=== PATIENT | female | born 1960 | race Caucasian/White ===

== ENCOUNTER → 2019-03-11 | Outpatient (CLI) | payer OTHER | LOC: WOUNDCARE 09:17 | PROVIDERS: ATTEND Nurse Practitioner | DX: E11.628 Type 2 diabetes mellitus with other skin complications (principal); L98.492 Non-pressure chronic ulcer of skin of other sites with fat layer exposed; E66.01 Morbid (severe) obesity due to excess calories | CPT/HCPCS: 11042; 11045 ==

== ENCOUNTER → 2019-03-18 | Outpatient (CLI) | payer OTHER | LOC: WOUNDCARE 08:55 | PROVIDERS: ATTEND Nurse Practitioner | DX: E11.628 Type 2 diabetes mellitus with other skin complications (principal); L98.492 Non-pressure chronic ulcer of skin of other sites with fat layer exposed; E66.01 Morbid (severe) obesity due to excess calories | CPT/HCPCS: 11042; 11045 ==

== ENCOUNTER → 2020-10-28 | Outpatient (CLI) | payer MEDICARE, MEDICAID | LOC: WOUNDCARE 15:24 | PROVIDERS: ATTEND Surgery | DX: L98.491 Non-pressure chronic ulcer of skin of other sites limited to breakdown of skin (principal); L22 Diaper dermatitis; L89.150 Pressure ulcer of sacral region, unstageable; I96 Gangrene, not elsewhere classified ==

== ENCOUNTER → 2020-11-11 | Outpatient (CLI) | payer MEDICARE, MEDICAID ==
[~2020-11-11] MED LIST: ALBU90AE2 IH; ASCO-262 PO; DAPA10TA PO; EXEN2PEN SQ; FURO40TA4 PO; GABA300C PO; GABA300S2 PO; INSU100V6 SQ; IPRA3AMP31 IH; LAMO100T69 PO; LORA-405 PO; LORA-405 SL; MELO15TA14 PO; OLAN5TAB25 PO; ONDA-105 PO; PANT40TA52 PO; POTA99TA21 PO; QUET25TA73 PO; QUET50TA55 PO; RIZA10TA23 PO; RT-ALBUINH IH; SUCR1TAB36 PO; TIOT18CA2 IH
== END ==
LOC: WOUNDCARE 14:43
PROVIDERS: ATTEND Surgery
DX: I96 Gangrene, not elsewhere classified (principal); L89.150 Pressure ulcer of sacral region, unstageable; L98.492 Non-pressure chronic ulcer of skin of other sites with fat layer exposed; L22 Diaper dermatitis

== ENCOUNTER 2020-11-15 09:24 | Inpatient (IN) | payer MEDICARE, MEDICAID ==
[~2020-11-15] VITALS: Ht 165.1 cm; Wt 147.2 kg
[2020-11-15] MEDS ORDERED: ONDANSETRON 4 MG/2 ML (SDV) Z0FRAN ONE (09:27)
[2020-11-15] MEDS ORDERED: LACTATED RINGERS 1,000 ML IV ONE ×4 (09:27→11:00)
[2020-11-15] MEDS ORDERED: VANCOMYCIN INJECTION 2,000 MG in NS IV 500 ML 500 ML IV ONE (09:32)
--- NOTE | 2020-11-15 09:37 | ED General ---
General Stated Complaint: AMS Source of Information: Patient Exam Limitations: No Limitations History of Present Illness Date Seen by Provider: Nov 15, 2020 Time Seen by Provider: 09:29 Initial Comments Patient presents ER by EMS from [facility] with chief complaint of lethargic and unresponsive. She stirs and answers questions for EMS. Blood damian gar 200. She recently got over COVID-19 a month ago. They had her on nasal cannula at 12 L/min. EMS switched her to a high flow nasal cannula 10 L/min keeping her about 94%. She was 90% on 6 L and typically wears 3 L at baseline. She says she is nauseated and thirsty. She is oriented to self but not place or time. She has a Reilly catheter in with dark urine which was placed by Dr. CABRALES's orders secondary to retention. No history of fever or cough. She had a negative Covid screen this morning from the custodial. Allergies and Home Medications Allergies Coded Allergies: ciprofloxacin (Verified Allergy, Unknown, 11/15/20) vancomycin (Verified Adverse Reaction, Unknown, 11/15/20) RED MAN SYNDROME Patient Home Medication List Home Medication List Reviewed: Yes Review of Systems Review of Systems Constitutional: No chills, No fever, No malaise; weakness EENTM: No ear discharge, No ear pain Respiratory: No cough; short of breath; No wheezing Cardiovascular: see HPI; No chest pain, No edema; Hx of Intervention; No palpitations, No syncope Gastrointestinal: No abdominal pain, No constipation, No diarrhea, No nausea Genitourinary: No discharge, No dysuria Musculoskeletal: back pain (Chronic); No joint pain All Other Systems Reviewed Negative Unless Noted: Yes Past Evatwfu-Jqawlq-Zajomd Hx Patient Social History Alcohol Use: Denies Use Smoking Status: Never a Smoker Physical Exam-Suspected Sepsis Physical Exam Vital Signs Vital Signs - First Documented Capillary Refill : Height, Weight, BMI Height: '" Weight: lbs. oz. kg; BMI Method: General Appearance: Anxious, Moderate Distress, Obese Eyes: Bilateral Eye Normal Inspection, Bilateral Eye PERRL, Bilateral Eye EOMI HEENT: PERRL/EOMI, TMs Normal, Pharynx Normal (Dry oral mucosa); No Moist Mucous Membranes Neck: Full Range of Motion, Normal Inspection, Supple Respiratory: Lungs Clear, Normal Breath Sounds, No Accessory Muscle Use, Respiratory Distress (mod) Cardiovascular: Regular Rate, Rhythm, Normal Peripheral Pulses, Tachycardia Gastrointestinal: Normal Bowel Sounds, Non Tender, Soft Extremity: Normal Capillary Refill, Normal Inspection, No Pedal Edema Neurologic/Psychiatric: Alert, Oriented x3 Skin: normal color, warm/dry Focused Exam Lactate Level 11/15/20 09:35: Lactic Acid Level 1.60 Lactic Acid Level Laboratory Tests Test 11/15/20 09:35 Lactic Acid Level 1.60 MMOL/L (0.50-2.00) Progress/Results/Core Measures Suspected Sepsis SIRS Temperature: Pulse: Respiratory Rate: Laboratory Tests 11/15/20 09:35: White Blood Count 21.4H Blood Pressure / Mean: 11/15/20 09:35: Lactic Acid Level 1.60 Laboratory Tests 11/15/20 09:35: Creatinine 0.91, INR Comment 1.0, Platelet Count 129L, Total Bilirubin 0.6 Results/Orders Lab Results Laboratory Tests Test 11/15/20 09:30 11/15/20 09:35 11/15/20 10:34 11/15/20 11:04 Range/Units White Blood Count 21.4 H 4.3-11.0 10^3/uL Red Blood Count 4.38 3.80-5.11 10^6/uL Hemoglobin 11.4 L 11.5-16.0 g/dL Hematocrit 38 35-52 % Mean Corpuscular Volume 88 80-99 fL Mean Corpuscular Hemoglobin 26 25-34 pg Mean Corpuscular Hemoglobin Concent 30 L 32-36 g/dL Red Cell Distribution Width 18.5 H 10.0-14.5 % Platelet Count 129 L 130-400 10^3/uL Mean Platelet Volume 10.6 9.0-12.2 fL Immature Granulocyte % (Auto) 1 % Neutrophils (%) (Auto) 83 H 42-75 % Lymphocytes (%) (Auto) 11 L 12-44 % Monocytes (%) (Auto) 5 0-12 % Eosinophils (%) (Auto) 0 0-10 % Basophils (%) (Auto) 0 0-10 % Neutrophils # (Auto) 17.8 H 1.8-7.8 10^3/uL Lymphocytes # (Auto) 2.4 1.0-4.0 10^3/uL Monocytes # (Auto) 1.0 0.0-1.0 10^3/uL Eosinophils # (Auto) 0.0 0.0-0.3 10^3/uL Basophils # (Auto) 0.0 0.0-0.1 10^3/uL Immature Granulocyte # (Auto) 0.2 H 0.0-0.1 10^3/uL Neutrophils % (Manual) 70 % Lymphocytes % (Manual) 11 % Monocytes % (Manual) 2 % Band Neutrophils 17 % Hypochromasia MODERATE Anisocytosis SLIGHT Stomatocytes SLIGHT Prothrombin Time 13.7 12.2-14.7 SEC INR Comment 1.0 0.8-1.4 Activated Partial Thromboplast Time 30 24-35 SEC D-Dimer 3.78 H 0.00-0.49 UG/ML Sodium Level 139 135-145 MMOL/L Potassium Level 3.9 3.6-5.0 MMOL/L Chloride Level 98 98-107 MMOL/L Carbon Dioxide Level 32 21-32 MMOL/L Anion Gap 9 5-14 MMOL/L Blood Urea Nitrogen 16 7-18 MG/DL Creatinine 0.91 0.60-1.30 MG/DL Estimat Glomerular Filtration Rate > 60 BUN/Creatinine Ratio 18 Glucose Level 219 H 70-105 MG/DL Lactic Acid Level 1.60 0.50-2.00 MMOL/L Calcium Level 8.3 L 8.5-10.1 MG/DL Corrected Calcium 9.3 8.5-10.1 MG/DL Total Bilirubin 0.6 0.1-1.0 MG/DL Aspartate Amino Transf (AST/SGOT) 47 H 5-34 U/L Alanine Aminotransferase (ALT/SGPT) 34 0-55 U/L Alkaline Phosphatase 109 40-136 U/L B-Type Natriuretic Peptide 57.9 <100.0 PG/ML Total Protein 5.8 L 6.4-8.2 GM/DL Albumin 2.8 L 3.2-4.5 GM/DL Urine Color YELLOW Urine Clarity CLEAR Urine pH 5.5 5-9 Urine Specific [place] 1.020 1.016-1.022 Urine Protein 1+ H NEGATIVE Urine Glucose (UA) 3+ H NEGATIVE Urine Ketones TRACE H NEGATIVE Urine Nitrite NEGATIVE NEGATIVE Urine Bilirubin NEGATIVE NEGATIVE Urine Urobilinogen 0.2 < = 1.0 MG/DL Urine Leukocyte Esterase TRACE H NEGATIVE Urine RBC (Auto) 3+ H NEGATIVE Urine RBC TNTC H /HPF Urine WBC 5-10 H /HPF Urine Squamous Epithelial Cells 0-2 /HPF Urine Crystals PRESENT H /LPF Urine Amorphous Sediment MOD ISIDRO URATES H /LPF Urine Bacteria LARGE H /HPF Urine Casts NONE /LPF Urine Mucus NEGATIVE /LPF Urine Yeast MODERATE H /HPF Urine Culture Indicated CULTURE PENDING Blood Gas Puncture Site NA Blood Gas Patient Temperature 36.8 Arterial Blood pH 7.34 *L 7.37-7.43 Arterial Blood Partial Pressure CO2 57 H 35-45 MMHG Arterial Blood Partial Pressure O2 86 79-93 MMHG Arterial Blood HCO3 30 H 23-27 MMOL/L Arterial Blood Total CO2 31.3 H 21.0-31.0 MMOL/L Arterial Blood Oxygen Saturation 95 94-100 % Arterial Blood Base Excess 4.1 H -2.5-2.5 MMOL/L Germán Test YES-POS Blood Gas Ventilator Setting NO Blood Gas Inspired Oxygen 15 L My Orders Orders - JW RITTER Lactated Ringers (Lr 1000 Ml Iv Solution (11/15/20 09:27) Ondansetron Injection (Zofran Injectio (11/15/20 09:27) Cbc With Automated Diff (11/15/20:32) Comprehensive Metabolic Panel (11/15/20:32) Blood Culture (11/15/20:32) Sputum Culture (11/15/20:32) Urinalysis (11/15/20:32) Urine Culture (11/15/20:32) Protime With Inr (11/15/20:32) Partial Thromboplastin Time (11/15/20:32) Chest 1 View, Ap/Pa Only (11/15/20:32) Ed Iv/Invasive Line Start (11/15/20 09:32) Ed Iv/Invasive Line Start (11/15/20 09:32) Vital Signs Adult Sepsis Patie Q15M (11/15/20 09:32) Ondansetron Injection (Zofran Injectio (11/15/20 09:45) O2 (11/15/20 09:32) Remove Rings In Anticipation O (11/15/20 09:32) Lactic Acid Analyzer (11/15/20 09:32) Lactated Ringers (Lr 1000 Ml Iv Solution (11/15/20 09:45) Cefepime Injection (Maxipime Injection) (11/15/20 09:45) Vancomycin Injection (Vancomycin Injecti (11/15/20 09:32) Ed Iv/Invasive Line Start (11/15/20 09:32) Lactated Ringers (Lr 1000 Ml Iv Solution (11/15/20 09:45) BNP (11/15/20 09:37) Manual Differential (11/15/20 09:35) Haloperidol Tablet (Haldol Tablet) (11/15/20 10:30) Ed Iv/Invasive Line Start (11/15/20 10:47) Lactated Ringers (Lr 1000 Ml Iv Solution (11/15/20 11:00) Arterial Blood Gas (11/15/20 10:58) Methylprednisolone Sod Succ (Solu-Medrol (11/15/20 11:30) Fibrin Degradation Products (11/15/20 11:37) Bipap (Bilevel) Set Up (11/15/20 12:19) Medications Given in ED Current Medications Medications Dose Ordered Sig/Jeremi Route Start Time Stop Time Status Last Admin Dose Admin Cefepime HCl 1000 mg/Sterile Water 10 ml @ 200 mls/hr ONCE ONCE IV 11/15/20 09:45 11/15/20 09:47 DC 11/15/20 09:59 200 MLS/HR Lactated Ringer's 1,000 ml @ 0 mls/hr Q0M ONCE IV 11/15/20 09:45 11/15/20 09:46 DC 11/15/20 09:38 1,000 MLS/HR Lactated Ringer's 1,000 ml @ 0 mls/hr Q0M ONCE IV 11/15/20 09:45 11/15/20 09:46 DC 11/15/20 09:58 0 MLS/HR Lactated Ringer's 1,000 ml @ 0 mls/hr Q0M ONCE IV 11/15/20 11:00 11/15/20 11:01 DC 11/15/20 11:03 0 MLS/HR Methylprednisolone Sodium Succinate 125 mg ONCE ONCE IVP 11/15/20 11:30 11/15/20 11:31 DC 11/15/20 12:04 125 MG Ondansetron HCl 8 mg PRN PRN IV 11/15/20 09:45 11/15/20 09:45 DC 2/8/21 09:39 8 MG Vancomycin HCl 2000 mg/Sodium Chloride 500 ml @ 260 mls/hr 0932 ONCE IV 11/15/20 09:32 11/15/20 11:27 DC 11/15/20 09:59 260 MLS/HR Vital Signs/I&O 11/15/20 11/15/20 11/15/20 11/15/20 09:24 09:24 11:27 12:40 Temp 36.8 Pulse 124 118 105 Resp 22 20 20 B/P (MAP) 143/71 (95) 108/70 Pulse Ox 93 96 94 O2 Delivery Nasal Cannula Nasal Cannula NIV Bilevel O2 Flow Rate 10.00 10.00 45.00 Capillary Refill : Progress Note #1: Time: 10:27 Progress Note Patient has not been lethargic since she arrived. She is vocal about her desire for p.o. fluids. We have given her 2 L which would be approximately 20 mL/kg based on ideal body weight. Broad-spectrum antibiotics. Progress Note #2: Time: 10:58 Progress Note Pneumonia versus UTI. Broad-spectrum antibiotics. The patient's blood pressure has continued to pain so we have ordered 1/3 L of fluids and will put in a central line and initiate Levophed as necessary. Patient's oxygen saturations have been poor. ABG will be ordered to ascertain how much of this is related to peripheral vasoconstriction related to her hypotension. Her hypotension started about same time we initiated the vancomycin and now she is appearing little red on examination. Suspect the vancomycin may be causing her hypotension. Were going to hold that and see how her blood pressure responds. Progress Note #3: Time: 11:46 Progress Note After stopping the vancomycin the patient's redness went away and her blood pressure significantly improved it is now 123/93. I will let her complete her IV fluids 3 L total. Went and gave her some steroids for her COPD exacerbation. Plan to start BiPAP at 15/5 45% FiO2 and that is maintaining her oxygen sats around 96% which is adequate. We cleaned and put a dressing on her sacral decub which is chronic. We put her into a hospital bed for offloading and will consult with wound care upstairs. Diagnostic Imaging Diagonstic Imaging: Xray Plain Films/CT/US/NM/MRI: chest Comments NAME: VIKI CYR [facility] REC#: [id number] PT STATUS: REG ER : 1960 PHYSICIAN: JW RITTER MD ADMIT DATE: 11/15/20/ER Draft Date of Exam:11/15/20 CHEST 1 VIEW, AP/PA ONLY HISTORY: Sepsis. COMPARISON: 01/14/2019 TECHNIQUE: Frontal view of the chest. FINDINGS: The tip of the left Port-A-Cath appears unchanged, projecting over the left innominate vein. There are mild airspace opacities in the lung bases and peripheral lungs. Lung volumes are low. No pleural effusion or pneumothorax is seen. The cardiac silhouette is stable in size. IMPRESSION: 1. Basilar and peripheral airspace opacities bilaterally, may be due to infection. Dictated on workstation # [id number] Dict: 11/15/20 1025 Trans: 11/15/20 1029 [id number] Interpreted by: TYLER PATEL MD Electronically signed by: Reviewed: Reviewed by Me Departure Communication (Admissions) Time/Spoke to Admitting Phy: 11:30 Discussed the case with Dr. Sheridan and she agrees to accept the patient to the ICU on BiPAP and cefepime. She will hold off on vancomycin at this time. Impression Primary Impression: Pneumonia Qualified Codes: J18.9 - Pneumonia, unspecified organism Additional Impressions: Catheter-associated urinary tract infection Qualified Codes: T83.511A - Infection and inflammatory reaction due to indwelling urethral catheter, initial encounter; N39.0 - Urinary tract infection, site not specified Acute respiratory failure with hypoxia and hypercapnia Sepsis Qualified Codes: A41.9 - Sepsis, unspecified organism; R65.20 - Severe sepsis without septic shock; J96.01 - Acute respiratory failure with hypoxia CHELO (red man syndrome) Disposition: ADMITTED INPATIENT Condition: Stable Admissions Decision to Admit Reason: Admit from ER (General) Decision to Admit/Date: Nov 15, 2020 Time/Decision to Admit Time: 10:00 Departure-Patient Inst. Referrals: KIRSTIN HERNANDEZ MD (PCP/Family) Primary Care Physician JW RITTER Nov 15, 2020 09:37
[2020-11-15] MEDS ORDERED: CEFEPIME INJECTION 1,000 MG in WATER (STERILE) FOR INJECTION 10 ML IV ONE (09:45)
[2020-11-15] MEDS ORDERED: ONDANSETRON 4 MG/2 ML (SDV) Z0FRAN IV PRN (09:45)
[2020-11-15 09:50] LABS: BASOPHILS % (AUTO) 0 % (0-10); EOSINOPHILS % (AUTO) 0 % (0-10); HEMATOCRIT 38 % (35-52); HEMOGLOBIN 11.4 g/dL (11.5-16.0); LYMPHOCYTES # (AUTO) 2.4 10^3/uL (1.0-4.0); LYMPHOCYTES % (AUTO) 11 % (12-44); MEAN CORPUSCULAR HEMOGLOBIN 26 pg (25-34); MEAN CORPUSCULAR HGB CONC 30 g/dL (32-36); MEAN CORPUSCULAR VOLUME 88 fL (80-99); MEAN PLATELET VOLUME 10.6 fL (9.0-12.2); MONOCYTES % (AUTO) 5 % (0-12); NEUTROPHILS # (AUTO) 17.8 10^3/uL (1.8-7.8); NEUTROPHILS % (AUTO) 83 % (42-75); PLATELET COUNT 129 10^3/uL (130-400); WHITE BLOOD COUNT 21.4 10^3/uL (4.3-11.0)
[2020-11-15 10:00] LABS: ALBUMIN 2.8 GM/DL (3.2-4.5)
[2020-11-15 10:01] LABS: CHLORIDE 98 MMOL/L (98-107); POTASSIUM 3.9 MMOL/L (3.6-5.0); SODIUM 139 MMOL/L (135-145)
[2020-11-15 10:02] LABS: CALCIUM 8.3 MG/DL (8.5-10.1); PROTHROMBIN TIME PATIENT 13.7 SEC (12.2-14.7)
[2020-11-15 10:03] LABS: ANISOCYTOSIS SLIGHT; BAND NEUTROPHILS 17 %; GLUCOSE 219 MG/DL (70-105); HYPOCHROMASIA MODERATE; LYMPHOCYTES % (MANUAL) 11 %; MONOCYTES % (MANUAL) 2 %; NEUTROPHILS % (MANUAL) 70 %; STOMATOCYTES SLIGHT; TOTAL PROTEIN 5.8 GM/DL (6.4-8.2)
[2020-11-15 10:04] LABS: CARBON DIOXIDE 32 MMOL/L (21-32)
[2020-11-15 10:05] LABS: BILIRUBIN,TOTAL 0.6 MG/DL (0.1-1.0)
[2020-11-15 10:06] LABS: ALKALINE PHOSPHATASE 109 U/L (40-136)
[2020-11-15 10:07] LABS: CREATININE SERUM 0.91 MG/DL (0.60-1.30); GFR ESTIMATED > 60
[2020-11-15 10:08] LABS: BUN/CREATININE RATIO 18
[2020-11-15 10:09] LABS: ALANINE AMINOTRANSFERASE 34 U/L (0-55)
--- NOTE | 2020-11-15 10:29 | Diagnostic Imaging Report ---
HISTORY: Sepsis. COMPARISON: 01/14/2019 TECHNIQUE: Frontal view of the chest. FINDINGS: The tip of the left Port-A-Cath appears unchanged, projecting over the left innominate vein. There are mild airspace opacities in the lung bases and peripheral lungs. Lung volumes are low. No pleural effusion or pneumothorax is seen. The cardiac silhouette is stable in size. IMPRESSION: 1. Basilar and peripheral airspace opacities bilaterally, may be due to infection. Dictated by: Dictated on workstation # [id number]
[2020-11-15] MEDS ORDERED: HALOPERIDOL 5 MG (HALDOL) TAB PO ONE (10:30)
[2020-11-15 10:39] LABS: BILIRUBIN,URINE NEGATIVE (NEGATIVE); CLARITY,URINE CLEAR; COLOR,URINE YELLOW; GLUCOSE, URINE (UA) 3+ (NEGATIVE); KETONES,URINE TRACE (NEGATIVE); LEUKOCYTE ESTERASE ,URINE TRACE (NEGATIVE); NITRITE,URINE NEGATIVE (NEGATIVE); PH,URINE 5.5 (5-9); PROTEIN,URINE 1+ (NEGATIVE)
[2020-11-15 10:48] LABS: AMORPHOUS SEDIMENT,UR MOD AMOR URATES /LPF; BACTERIA,URINE LARGE /HPF; RBC,URINE TNTC /HPF; SQUAMOUS EPITHELIAL CELL,UR 0-2 /HPF; YEAST,URINE MODERATE /HPF
[2020-11-15 11:09] LABS: ABG BASE EXCESS 4.1 MMOL/L (-2.5-2.5); ABG OXYGEN SATURATION 95 % (94-100); ABG PCO2 57 MMHG (35-45); ABG PO2 86 MMHG (79-93); ABG TCO2 31.3 MMOL/L (21.0-31.0)
[2020-11-15 11:12] LABS: ABG PH 7.34 (7.37-7.43); ALLENS TEST YES-POS; INSPIRED O2 15 L; PATIENT TEMP 36.8; VENTILATOR NO
[2020-11-15 11:27] VITALS: BP 122/74
[2020-11-15] MEDS ORDERED: methylPREDNISolone 125 MG (Solu-MEDROL) VIAL IVP ONE (11:30)
[2020-11-15] MEDS ORDERED: ACETAMINOPHEN 325 MG TABLET PO PRN (13:00)
[2020-11-15] MEDS ORDERED: ACETAMINOPHEN 650 MG SUPP (TYLENOL) PR PRN (13:00)
[2020-11-15] MEDS ORDERED: NS IV 1000 ML 1,000 ML IV SCH (13:00)
[2020-11-15] MEDS ORDERED: EPINEPHrine 1 MG INJECTION 4 MG in NS (IVPB) 248 ML IV SCH (13:15)
[2020-11-15] MEDS ORDERED: CATHETER FLUSH 10 ML SYR IV PRN (13:15)
--- NOTE | 2020-11-15 14:04 | History & Physical-Hospitalist ---
CLAIRE PENDLETON,MED STUDENT 11/15/20 1404: History of Present Illness HPI/Chief Complaint Patient is a 60yo female with a PMH of COPD, CHF, hypothyroidism and T2DM who presents from [facility] via EMS due to lethargy and unresponsiveness. She recently recovered from COVID-19 one month ago, and wears a baseline of 3L of O2. Staff noted that her O2 sat was 90% on 6L this morning, and at the time EMS was called she was on 12L. EMS switched her to high flow at 10L and she was 94%. On arrival she was drowsy but answered questions. She complained of nausea, diarrhea and increased thirst. A frost catheter is in place due to urinary retention and was draining dark urine. CXR revealed bilateral mild lung base opacities, and WBC is elevated. She was started on cefepime and vancomycin, but became flushed and hypotensive. The vancomycin was held due to suspected red man syndrome, and her flushing and hypotension subsequently improved. She was starte d on BiPAP, given Solumedrol. and admitted to the ICU. Source: patient Exam Limitations: clinical condition Date Seen 11/15/20 Attending Physician Angelo Mcginnis MD PCP Mlian Davenport MD Referring Physician Date of Admission Nov 15, 2020 at 11:50 Home Medications & Allergies Home Medications Reviewed patient Home Medication Reconciliation performed by pharmacy medication reconciliations dialysis equipment technician and/or nursing. Patients Allergies have been reviewed. Allergies Allergies Coded Allergies ciprofloxacin (Verified Allergy, Unknown, 11/15/20) vancomycin (Verified Adverse Reaction, Unknown, 11/15/20) RED MAN SYNDROME Past Kohhckk-Jqswav-Dzawmn Hx Patient Social History Alcohol Use: Denies Use Recreational Drug Use: No Smoking Status: Never a Smoker Recent Foreign Travel: No Contact w/other who traveled: No Recent Hopitalizations: No Recent Infectious Disease Expo: No Immunizations Up To Date Tetanus Booster (TDap): Unknown Pediatric: Yes Seasonal Allergies Seasonal Allergies: No Past Medical History Respiratory: COPD Genitourinary: UTI-Chronic Gastrointestinal: Gastroesophageal Reflux Endocrine: Hypothyroidsim, Diabetes, Non-Insulin dep Psychosocial: Anxiety, Depression Review of Systems ROS-Unable to Obtain: Unable to obtain due to clinical condition Physical Exam Physical Exam Vital Signs Vital Signs - First Documented Capillary Refill : Less Than 3 Seconds Height, Weight, BMI Height: '" Weight: lbs. oz. kg; 54.40 BMI Method: General Appearance: No Apparent Distress, Chronically ill, Obese HEENT: PERRL/EOMI, Pharynx Normal; No Moist Mucous Membranes Neck: Full Range of Motion, Non Tender Respiratory: No Accessory Muscle Use, Decreased Breath Sounds; No Wheezing Cardiovascular: No Murmur, Normal Peripheral Pulses, Tachycardia Gastrointestinal: Normal Bowel Sounds, Non Tender, Soft Extremity: Normal Capillary Refill, Non Tender; No Calf Tenderness; Pedal Edema Neurologic/Psychiatric: Disoriented, Other (Drowsy) Skin: Other (Multiple open moisture-associated or pressure wounds, including over the sacrum, groin, and right lateral chest wall) Results Results/Procedures Labs Laboratory Tests 11/15/20 09:35 Patient resulted labs reviewed. Assessment/Plan Assessment and Plan UTI with severe sepsis On cefepime On IV fluids Cultures pending Repeat lactic acid Acute respiratory failure with hypercapnia and hypoxia On BiPAP 45% FiO2 15/5 On Solumedrol Repeat ABG D-dimer elevated, on Lovenox 60mg Q12, plan for CT tomorrow NPO in preparation for possible intubation Type II DM Hold home medications Hypothyroid Hold home medications ANGELO MCGINNIS MD 11/15/20 1714: History of Present Illness Time Seen by a Provider: 16:00 Past Colqtyh-Dzjdvp-Nqpzyd Hx Past Med/Social Hx: Reviewed Nursing Past Med/Soc Hx Review of Systems Constitutional: see HPI Assessment/Plan Admission Diagnosis Severe Sepsis with acute respiratory failure Admission Status: Inpatient Order (span 2 midnights) Reason for Inpatient Admission: see below Assessment and Plan Patient presented severely ill from sepsis likely due to a UTI. She was hypoxic as well and etiology is unclear at this time other than COPD exacerbation and post COVID residual disease. She is currently on BiPAP and will awaken but tires. ABG ordered and pending. Discussed case with Dr Garcia, low threshold for intubation. Patient is currently a guardian of the state. I discussed the case with her guardian who states she is to be a full code and they are not currently interested in petitioning the court to change this as a few weeks ago she was able to live independently and they are hopeful to return to that. Will continue on IV abx. Await cultures. D-dimer elevated, will add Lovenox and if more stable in the morning plan for CTA. Supervisory-Addendum Brief Verification & Attestation Participated in pt care: history, MDM, physical Personally performed: exam, history, MDM, supervision of care Care discussed with: Medical Student Procedures: n/a Results interpretation: Verified all documentation Verification and Attestation of Medical Student E/M Service A medical student performed and documented this service in my presence. I reviewed and verified all information documented by the medical student and made modifications to such information, when appropriate. I personally performed the physical exam and medical decision making. Angelo Mcginnis, Nov 15, 2020,16:58 CLAIRE PENDLETON,MED STUDENT Nov 15, 2020 14:04 ANGELO MCGINNIS MD Nov 15, 2020 17:14
[2020-11-15 14:55] VITALS: BP 122/76
[2020-11-15] MEDS: NOREPINEPHRINE 4 MG/250 ML 250 ML IV SCH ×3 (15:06→21:08)
[2020-11-15] MEDS: VASOPRESSIN INJECTION 20 UNIT in NS (IVPB) 100 ML IV SCH ×2 (15:07→21:08)
[2020-11-15] MEDS ORDERED: RT-ALBUTEROL/IPRATROPIUM 3 ML (DUONEB) VIAL INH PRN (15:15)
[2020-11-15 15:21] LABS: ABG BASE EXCESS 6.2 MMOL/L (-2.5-2.5); ABG OXYGEN SATURATION 96 % (94-100); ABG PCO2 54 MMHG (35-45); ABG PH 7.38 (7.37-7.43); ABG PO2 80 MMHG (79-93); ABG TCO2 33.2 MMOL/L (21.0-31.0); ALLENS TEST YES-POS; INSPIRED O2 45 L; VENTILATOR NO
[2020-11-15] MEDS ORDERED: FURO40TA4 PO (15:52)
[2020-11-15] MEDS ORDERED: IPRA3AMP31 IH (15:52)
[2020-11-15] MEDS ORDERED: SUCR1TAB36 PO (15:52)
[2020-11-15] MEDS ORDERED: PANT40TA52 PO (15:52)
[2020-11-15] MEDS ORDERED: EXEN2PEN SQ (15:52)
[2020-11-15] MEDS ORDERED: OLAN5TAB25 PO (15:52)
[2020-11-15] MEDS ORDERED: MELO15TA14 PO (15:52)
[2020-11-15] MEDS ORDERED: ALBU90AE2 IH (15:52)
[2020-11-15] MEDS ORDERED: POTA99TA21 PO (15:52)
[2020-11-15] MEDS ORDERED: DAPA10TA PO (15:52)
[2020-11-15] MEDS ORDERED: GABA300S2 PO (15:52)
[2020-11-15] MEDS ORDERED: QUET50TA22 PO (15:52)
[2020-11-15] MEDS ORDERED: ASCO-262 PO (15:52)
[2020-11-15] MEDS ORDERED: ONDA-105 PO (15:52)
[2020-11-15] MEDS ORDERED: RIZA10TA23 PO (15:52)
[2020-11-15] MEDS ORDERED: LORA-405 SL (15:52)
[2020-11-15] MEDS ORDERED: LAMO100T69 PO (15:52)
[2020-11-15] MEDS ORDERED: INSU100V6 SQ (15:52)
[2020-11-15] MEDS ORDERED: ENOXAPARIN 60 MG/0.6 ML (LOVENOX) SYR SC SCH (16:00)
--- NOTE | 2020-11-15 16:11 | Pulmonary Consultation ---
History of Present Illness History of Present Illness Date Seen by Provider: Nov 15, 2020 Time Seen by Provider: 16:05 Date of Admission Allergies and Home Medications Allergies Coded Allergies: ciprofloxacin (Verified Allergy, Unknown, 11/15/20) vancomycin (Verified Adverse Reaction, Unknown, 11/15/20) RED MAN SYNDROME Home Medications Albuterol Sulfate 90 Mcg Aer.pw.bas, 90 MCG IH Q4H PRN for SHORTNESS OF BREATH, (Reported) Ascorbate Calcium 500 Mg Tablet, 500 MG PO BID, (Reported) Dapagliflozin Propanediol 10 Mg Tablet, 10 MG PO DAILY, (Reported) Exenatide Microspheres 2 Mg/0.65 Ml Pen.injctr, 2 MG SQ WEEK, (Reported) Furosemide 40 Mg Tablet, 40 MG PO DAILY, (Reported) Gabapentin 300 Mg/6 Ml Solution, 300 MG PO BID, (Reported) Insulin Glargine,Hum.rec.anlog 100 Unit/1 Ml Vial, 25 UNIT SQ HS, (Reported) Ipratropium/Albuterol Sulfate 3 Ml Ampul.neb, 3 ML IH QID PRN for SHORTNESS OF B REATH, (Reported) Lamotrigine 100 Mg Tablet, 100 MG PO DAILY, (Reported) Lorazepam 1 Mg Tablet, 1 MG SL BID PRN for ANXIETY, (Reported) Meloxicam 15 Mg Tablet, 15 MG PO DAILY, (Reported) Olanzapine 5 Mg Tablet, 5 MG PO HS, (Reported) Ondansetron HCl 4 Mg Tablet, 4 MG PO Q8H PRN for NAUSEA-1ST LINE, (Reported) Pantoprazole Sodium 40 Mg Tablet.dr, 40 MG PO DAILY, (Reported) Potassium Gluconate 99 Mg Tablet, 20 MEQ PO DAILY, (Reported) Quetiapine Fumarate 50 Mg Tablet, 50 MG PO TID, (Reported) Rizatriptan Benzoate 10 Mg Tablet, 10 MG PO UD, (Reported) EVERY 2 HOURS NEEDED FOR HEADACHE Sucralfate 1 Gm Tablet, 1 GM PO TID, (Reported) Past Seryomz-Hvophe-Ypbklj Hx Patient Social History Alcohol Use: Denies Use Smoking Status: Never a Smoker Recent Infectious Disease Expo: No Recent Hopitalizations: No Have you traveled recently?: No Alcohol Use?: No Immunizations Up To Date Tetanus Booster (TDap): Unknown PED Vaccines UTD: Yes Date of Influenza Vaccine: Aug 15, 2020 Seasonal Allergies Seasonal Allergies: No Past Medical History Surgeries: Yes Respiratory: Yes Pneumonia Cardiac: Yes Neurological: No Genitourinary: Yes UTI-Chronic Gastrointestinal: Yes Gastroesophageal Reflux Musculoskeletal: No Endocrine: Yes Hypothyroidsim, Diabetes, Non-Insulin dep HEENT: No Cancer: No Psychosocial: Yes Anxiety, Depression Sepsis Event Evaluation Height, Weight, BMI Height: '" Weight: lbs. oz. kg; 54.40 BMI Method: Exam Exam Vital Signs Date Time Temp Pulse Resp B/P (MAP) Pulse Ox O2 Delivery O2 Flow Rate FiO2 11/15/20 14:55 98 20 94 45.00 11/15/20 13:04 108 11/15/20 12:40 105 20 108/70 94 NIV Bilevel 11/15/20 11:27 118 20 96 45.00 11/15/20 09:24 Nasal Cannula 10.00 11/15/20 09:24 36.8 124 22 143/71 (95) 93 Nasal Cannula 10.00 Height & Weight Height: '" Weight: lbs. oz. kg; 54.40 BMI Method: General Appearance: No Apparent Distress, Chronically ill, Obese HEENT: PERRL/EOMI, Pharynx Normal; No Moist Mucous Membranes Neck: Full Range of Motion, Non Tender Respiratory: No Accessory Muscle Use, Decreased Breath Sounds; No Wheezing Cardiovascular: No Murmur, Normal Peripheral Pulses, Tachycardia Capillary Refill: Less Than 3 Seconds Extremity: Normal Capillary Refill, Non Tender; No Calf Tenderness; Pedal Edema Neurologic/Psychiatric: Disoriented, Other (Drowsy) Skin: Other (Multiple open moisture-associated or pressure wounds, including over the sacrum, groin, and right lateral chest wall) Results Lab Laboratory Tests 11/15/20 09:35 Assessment/Plan Assessment/Plan Acute respiratory failure -Currently BiPAP -ABG reviewed -Monitor Severe sepsis -IVF change NS to LR at 150ml/hr Chronic frost with UTI -Cefepime add Zyvox -Per ER pt did not tolerate Vancomycin. Skin wounds -Wound care consulted Type II DM Hold home medications -SSI Hypothyroid Hold home medications MICAH GAMEZ DO Nov 15, 2020 16:10
[2020-11-15] MEDS: inSUlin ASPART (NovoLOG) 1 UNIT/0.01 ML (CHARGE PER UNIT) SC SCH ×2 (16:57→20:27)
[2020-11-15] MEDS ORDERED: ENOXAPARIN 100 MG/1 ML (LOVENOX) SYR SC SCH (17:15)
--- NOTE | 2020-11-15 18:07 | Wound Care Assessment ---
Wound Care Assessment Date Seen by Provider: Nov 15, 2020 Time Seen by Provider: 17:00 Chief Complaint Sacral pressure ulcer, moisture associated skin damage bilateral groins. HPI The patient is a 60 year old female with an unstageable sacral pressure ulcer and multiple ulcerations of bilateral groins related to moisture due to large dependent pannus (BMI = 54.) The patient has limited mobility. Smoking Status: Never a Smoker Recreational Drug Use: No Alcohol Use: Denies Use Review of Systems Pulmonary: Dyspnea Exam Vital Signs Date Time Temp Pulse Resp B/P (MAP) Pulse Ox O2 Delivery O2 Flow Rate FiO2 11/15/20 17:00 60 124/72 (89) 100 NIV Bilevel 95.00 11/15/20 16:13 36.0 11/15/20 16:00 17 Capillary Refill : Less Than 3 Seconds Gastrointestinal: other (Multiple scattered ulcers under pannus bilaterally of various sizes, ranging up to 3 cm.) Back: other (Sacral ulcer 3.0 x 5.0 x 0.4 cm, 100% slough) Results Laboratory Tests 11/15/20 09:30: Procalcitonin 14.81H 11/15/20 09:35: White Blood Count 21.4H, Red Blood Count 4.38, Hemoglobin 11.4L, Hematocrit 38, Mean Corpuscular Volume 88, Mean Corpuscular Hemoglobin 26, Mean Corpuscular Hemoglobin Concent 30L, Red Cell Distribution Width 18.5H, Platelet Count 129L, Mean Platelet Volume 10.6, Immature Granulocyte % (Auto) 1, Neutrophils (%) (Auto) 83H, Lymphocytes (%) (Auto) 11L, Monocytes (%) (Auto) 5, Eosinophils (%) (Auto) 0, Basophils (%) (Auto) 0, Neutrophils # (Auto) 17.8H, Lymphocytes # (Auto) 2.4, Monocytes # (Auto) 1.0, Eosinophils # (Auto) 0.0, Basophils # (Auto) 0.0, Immature Granulocyte # (Auto) 0.2H, Neutrophils % (Manual) 70, Lymphocytes % (Manual) 11, Monocytes % (Manual) 2, Band Neutrophils 17, Hypochromasia MODERATE, Anisocytosis SLIGHT, Stomatocytes SLIGHT, Prothrombin Time 13.7, INR Comment 1.0, Activated Partial Thromboplast Time 30, D-Dimer 3.78H, Sodium Level 139, Potassium Level 3.9, Chloride Level 98, Carbon Dioxide Level 32, Anion Gap 9, Blood Urea Nitrogen 16, Creatinine 0.91, Estimat Glomerular Filtration Rate > 60, BUN/Creatinine Ratio 18, Glucose Level 219H, Lactic Acid Level 1.60, Calcium Level 8.3L, Corrected Calcium 9.3, Total Bilirubin 0.6, Aspartate Amino Transf (AST/SGOT) 47H, Alanine Aminotransferase (ALT/SGPT) 34, Alkaline Phosphatase 109, B-Type Natriuretic Peptide 57.9, Total Protein 5.8L, Albumin 2.8L 11/15/20 10:34: Urine Color YELLOW, Urine Clarity CLEAR, Urine pH 5.5, Urine Specific [place] 1.020, Urine Protein 1+H, Urine Glucose (UA) 3+H, Urine Ketones TRACEH, Urine Nitrite NEGATIVE, Urine Bilirubin NEGATIVE, Urine Urobilinogen 0.2, Urine Leukocyte Esterase TRACEH, Urine RBC (Auto) 3+H, Urine RBC TNTCH, Urine WBC 5- 10H, Urine Squamous Epithelial Cells 0-2, Urine Crystals PRESENTH, Urine Amorphous Sediment MOD ISIDRO URATESH, Urine Bacteria LARGEH, Urine Casts NONE, Urine Mucus NEGATIVE, Urine Yeast MODERATEH, Urine Culture Indicated CULTURE PENDING 11/15/20 11:04: Blood Gas Puncture Site NA, Blood Gas Patient Temperature 36.8, Arterial Blood pH 7.34*L, Arterial Blood Partial Pressure CO2 57H, Arterial Blood Partial Pressure O2 86, Arterial Blood HCO3 30H, Arterial Blood Total CO2 31.3H, Arterial Blood Oxygen Saturation 95, Arterial Blood Base Excess 4.1H, Germán Test YES-POS, Blood Gas Ventilator Setting NO, Blood Gas Inspired Oxygen 15 L 11/15/20 13:21: Lactic Acid Level 3.93*H 11/15/20 15:15: Blood Gas Puncture Site R RADIAL, Blood Gas Patient Temperature 36.0, Arterial Blood pH 7.38, Arterial Blood Partial Pressure CO2 54H, Arterial Blood Partial Pressure O2 80, Arterial Blood HCO3 31H, Arterial Blood Total CO2 33.2H, Arterial Blood Oxygen Saturation 96, Arterial Blood Base Excess 6.2H, Germán Test YES-POS, Blood Gas Ventilator Setting NO, Blood Gas Inspired Oxygen 45 L 11/15/20 15:38: Glucometer 183H 11/15/20 15:49: Lactic Acid Level 2.64*H Microbiology 11/15/20 C. difficile GDH Antigen & Toxins - Final, Complete Microbiology 11/15/20 C. difficile GDH Antigen & Toxins - Final, Complete Assessment/Plan/Dx 1. Pressure ulcer of sacrum, present on admission, unstageable. 2. Moisture Associated Skin Damage with ulceration, bilateral groins. 3. Morbid obesity. Plan: Reposition frequently, barrier paste to pannus, bordered foam to sacral pressure ulcer. CHATO ARELLANO MD Nov 15, 2020 18:07
[2020-11-15] MEDS: ENOXAPARIN 300 MG/3 ML (LOVENOX) MULTI-DOSE VIAL SQ SCH (18:08)
[2020-11-15] MEDS: CEFEPIME 1,000 MG/SWFI 10 ML IV PUSH IV SCH ×4 (18:14→23:33)
[2020-11-15] MEDS: LACTATED RINGERS 1,000 ML IV SCH ×2 (18:19→19:41)
[2020-11-15 18:44] VITALS: BP 122/76
[2020-11-15] MEDS: RT-ALBUTEROL/IPRATROPIUM 3 ML (DUONEB) VIAL INH SCH ×2 (18:44→21:21)
[2020-11-15] MEDS ORDERED: methylPREDNISolone 125 MG (Solu-MEDROL) VIAL IV SCH (20:00)
[2020-11-15] MEDS: LINEZOLID IVPB 300 ML IV SCH (20:26)
[2020-11-15 21:21] VITALS: BP 117/66
[2020-11-16 01:21] VITALS: BP 121/70
[2020-11-16] MEDS: RT-ALBUTEROL/IPRATROPIUM 3 ML (DUONEB) VIAL INH SCH ×6 (01:21→22:27)
[2020-11-16] MEDS: NOREPINEPHRINE 4 MG/250 ML 250 ML IV SCH ×5 (03:21→21:58)
[2020-11-16 03:51] LABS: BASOPHILS % (AUTO) 0 % (0-10); EOSINOPHILS % (AUTO) 0 % (0-10); HEMATOCRIT 33 % (35-52); HEMOGLOBIN 9.9 g/dL (11.5-16.0); LYMPHOCYTES # (AUTO) 0.9 10^3/uL (1.0-4.0); LYMPHOCYTES % (AUTO) 9 % (12-44); MEAN CORPUSCULAR HEMOGLOBIN 26 pg (25-34); MEAN CORPUSCULAR HGB CONC 30 g/dL (32-36); MEAN CORPUSCULAR VOLUME 87 fL (80-99); MEAN PLATELET VOLUME 10.9 fL (9.0-12.2); MONOCYTES # (AUTO) 0.3 10^3/uL (0.0-1.0); MONOCYTES % (AUTO) 3 % (0-12); NEUTROPHILS # (AUTO) 9.2 10^3/uL (1.8-7.8); NEUTROPHILS % (AUTO) 88 % (42-75); PLATELET COUNT 109 10^3/uL (130-400); WHITE BLOOD COUNT 10.5 10^3/uL (4.3-11.0)
[2020-11-16 04:01] LABS: CHLORIDE 100 MMOL/L (98-107); POTASSIUM 3.9 MMOL/L (3.6-5.0); SODIUM 138 MMOL/L (135-145)
[2020-11-16 04:02] LABS: CALCIUM 7.9 MG/DL (8.5-10.1); GLUCOSE 244 MG/DL (70-105)
[2020-11-16 04:04] LABS: CARBON DIOXIDE 26 MMOL/L (21-32)
[2020-11-16 04:06] LABS: CREATININE SERUM 0.73 MG/DL (0.60-1.30); GFR ESTIMATED > 60; PHOSPHORUS 3.4 MG/DL (2.3-4.7)
[2020-11-16 04:07] LABS: BUN/CREATININE RATIO 27
[2020-11-16 04:09] LABS: MAGNESIUM 1.5 MG/DL (1.6-2.4)
--- NOTE | 2020-11-16 04:36 | Pulmonary Progress Note ---
Subjective Time Seen by a Provider: 04:32 Subjective/Events-last exam Pt appears to be doing better however still requiring BiPAP. Sepsis Event Evaluation Height, Weight, BMI Height: '" Weight: lbs. oz. kg; 54.40 BMI Method: Focused Exam Lactate Level 11/15/20 15:49: Lactic Acid Level 2.64*H 11/15/20 18:00: Lactic Acid Level 2.41*H 11/15/20 20:30: Lactic Acid Level 1.70 Exam Exam Vital Signs Date Time Temp Pulse Resp B/P (MAP) Pulse Ox O2 Delivery O2 Flow Rate FiO2 11/16/20 02:08 14 11/16/20 02:00 96 132/68 (89) 93 NIV Bilevel 45.00 11/16/20 01:21 93 16 94 45.00 11/16/20 01:00 95 11/16/20 01:00 95 121/70 (87) 94 NIV Bilevel 45.00 11/16/20 00:23 NIV Bilevel 45 11/16/20 00:00 92 117/69 (85) 94 NIV Bilevel 45.00 11/15/20 23:35 36.0 NIV Bilevel 45.00 11/15/20 23:00 97 20 124/65 (84) 94 NIV Bilevel 45.00 11/15/20 22:00 101 13 129/68 (88) 94 NIV Bilevel 45.00 11/15/20 21:21 90 15 95 45.00 11/15/20 21:00 103 117/66 (83) 94 NIV Bilevel 45.00 11/15/20 20:30 NIV Bilevel 45 11/15/20 20:00 NIV Bilevel 45.00 11/15/20 20:00 103 129/74 (92) 95 NIV Bilevel 45.00 11/15/20 19:33 35.6 11/15/20 19:00 102 18 106/52 (70) 95 NIV Bilevel 45.00 11/15/20 19:00 102 11/15/20 18:44 99 17 96 45.00 11/15/20 18:00 103 31 145/74 (97) 98 NIV Bilevel 95.00 11/15/20 17:00 60 124/72 (89) 100 NIV Bilevel 95.00 11/15/20 16:13 36.0 11/15/20 16:00 60 17 153/86 (108) 100 NIV Bilevel 95.00 11/15/20 16:00 NIV Bilevel 40 11/15/20 14:55 98 20 94 45.00 11/15/20 13:04 108 11/15/20 12:40 105 20 108/70 94 NIV Bilevel 11/15/20 11:27 118 20 96 45.00 11/15/20 09:24 Nasal Cannula 10.00 11/15/20 09:24 36.8 124 22 143/71 (95) 93 Nasal Cannula 10.00 I & O 11/16/20 07:00 Intake Total 5280 ml Output Total 875 ml Balance 4405 ml Height & Weight Height: '" Weight: lbs. oz. kg; 54.40 BMI Method: General Appearance: No Apparent Distress, Chronically ill, Obese HEENT: PERRL/EOMI, Pharynx Normal Neck: Full Range of Motion, Non Tender Respiratory: No Accessory Muscle Use, Decreased Breath Sounds Cardiovascular: No Murmur, Normal Peripheral Pulses, Tachycardia Capillary Refill: Less Than 3 Seconds Gastrointestinal: other (Multiple scattered ulcers under pannus bilaterally of various sizes, ranging up to 3 cm.) Extremity: Normal Capillary Refill, Non Tender, Pedal Edema Neurologic/Psychiatric: Disoriented, Other Skin: Other Results Lab Laboratory Tests 11/15/20 09:35 11/16/20 03:06 Assessment/Plan Assessment/Plan Acute respiratory failure -Currently BiPAP -ABG-- Will repeat -Monitor Severe sepsis -IVF change NS to LR at 150ml/hr Chronic frost with UTI -Cefepime add Zyvox -Per ER pt did not tolerate Vancomycin. Skin wounds -Wound care consulted Type II DM Hold home medications -SSI Hypothyroid MICAH GAMEZ DO Nov 16, 2020 04:36
[2020-11-16] MEDS ORDERED: MAGNESIUM 1 GM/100 ML IVPB 300 ML IV ONE (04:39)
[2020-11-16] MEDS: inSUlin ASPART (NovoLOG) 1 UNIT/0.01 ML (CHARGE PER UNIT) SC SCH ×4 (05:04→21:04)
[2020-11-16] MEDS: VASOPRESSIN INJECTION 20 UNIT in NS (IVPB) 100 ML IV SCH ×3 (05:04→21:59)
[2020-11-16] MEDS: LACTATED RINGERS 1,000 ML IV SCH (05:05)
[2020-11-16] MEDS: CEFEPIME 1,000 MG/SWFI 10 ML IV PUSH IV SCH ×6 (05:05→17:30)
[2020-11-16 05:06] LABS: ABG BASE EXCESS 6.9 MMOL/L (-2.5-2.5); ABG OXYGEN SATURATION 99 % (94-100); ABG PCO2 49 MMHG (35-45); ABG PH 7.42 (7.37-7.43); ABG PO2 110 MMHG (79-93); ABG TCO2 33.1 MMOL/L (21.0-31.0)
[2020-11-16 05:09] LABS: ALLENS TEST YES-POS; INSPIRED O2 45%; PATIENT TEMP 36.2; VENTILATOR YES
[2020-11-16] MEDS: ENOXAPARIN 300 MG/3 ML (LOVENOX) MULTI-DOSE VIAL SQ SCH ×2 (05:11→17:30)
[2020-11-16] MEDS: MAGNESIUM 1 GM/100 ML IVPB 100 ML IV SCH ×3 (05:12→08:21)
[2020-11-16 07:01] VITALS: BP 126/67
[2020-11-16] MEDS: LINEZOLID IVPB 300 ML IV SCH (08:20)
[2020-11-16] MEDS: PANTOPRAZOLE 40 MG (PROTONIX) VIAL IV SCH (08:21)
[2020-11-16] MEDS: methylPREDNISolone 40 MG/ML (Solu-MEDROL) VIAL IV SCH ×2 (08:21→21:05)
--- NOTE | 2020-11-16 08:28 | Progress Note - Hospitalist ---
CLAIRE PENDLETON,MED STUDENT 11/16/20 0828: Subjective HPI/CC On Admission Date Seen by Provider: Nov 16, 2020 Patient is a 60yo female with a PMH of COPD, CHF, hypothyroidism and T2DM who presents from [facility] via EMS due to lethargy and unresponsiveness. She recently recovered from COVID-19 one month ago, and wears a baseline of 3L of O2. Staff noted that her O2 sat was 90% on 6L this morning, and at the time EMS was called she was on 12L. EMS switched her to high flow at 10L and she was 94%. On arrival she was drowsy but answered questions. She complained of nausea, diarrhea and increased thirst. A frost catheter is in place due to urinary retention and was draining dark urine. CXR revealed bilateral mild lung base opacities, and WBC is elevated. She was started on cefepime and vancomycin, but became flushed and hypotensive. The vancomycin was held due to suspected red man syndrome, and her flushing and hypotension subsequently improved. She was started on BiPAP, given Solumedrol. and admitted to the ICU. Subjective/Events-last exam Doing better this morning, more awake and alert. Still requiring BiPAP, currently at 15/5 at 35% FiO2. Still tachycardic with HR upper 90's to low 100's throughout the night. Focused Exam Lactate Level 11/15/20 15:49: Lactic Acid Level 2.64*H 11/15/20 18:00: Lactic Acid Level 2.41*H 11/15/20 20:30: Lactic Acid Level 1.70 Objective Exam Vital Signs Vital Signs Date Time Temp Pulse Resp B/P (MAP) Pulse Ox O2 Delivery O2 Flow Rate FiO2 11/16/20 10:00 114 11 141/86 (104) 97 NIV Bilevel 35.00 11/16/20 07:23 35.3 11/16/20 04:00 45 Capillary Refill : Less Than 3 Seconds General Appearance: No Apparent Distress, Obese HEENT: PERRL/EOMI, Pharynx Normal Neck: Full Range of Motion, Supple Respiratory: Lungs Clear, No Accessory Muscle Use Cardiovascular: No Murmur, Normal Peripheral Pulses, Tachycardia Gastrointestinal: Normal Bowel Sounds, Non Tender, Soft Extremity: Normal Capillary Refill, No Calf Tenderness Neurologic/Psychiatric: Alert, No Motor/Sensory Deficits Results/Procedures Lab Laboratory Tests 11/16/20 03:06 Patient resulted labs reviewed. Assessment/Plan Assessment and Plan Assess & Plan/Chief Complaint UTI with severe sepsis On cefepime Cultures negative for MRSA, DC Zyvox On IV fluids Lactic acid improved Acute respiratory failure with hypercapnia and hypoxia On BiPAP 35% FiO2 15/5 Repeat ABG Trial high flow NC Thrombocytopenia Likely drug-induced vs dilutional Continue to monitor Anemia Continue to monitor Hypomagnesemia Replacing Type II DM Hold home medications Sliding scale insulin Add Levemir Hypothyroid Hold home medications ANGELO SHERIDAN MD 11/16/20 1340: Subjective HPI/CC On Admission Time Seen by Provider: 10:15 Assessment/Plan Assessment and Plan Assess & Plan/Chief Complaint Pt appears much more alert today. Off BiPAP and answering questions appropriately for the most part. Her only compliant is about wanting to go home. Reviewed her microbiology results that are consistent with gram negative mirian bacteremia. Will continue on Cefepime but DC Zyvox. Supervisory-Addendum Brief Verification & Attestation Participated in pt care: history, MDM, physical Personally performed: exam, history, MDM, supervision of care Care discussed with: Medical Student Procedures: n/a Results interpretation: Verified all documentation Verification and Attestation of Medical Student E/M Service A medical student performed and documented this service in my presence. I reviewed and verified all information documented by the medical student and made modifications to such information, when appropriate. I personally performed the physical exam and medical decision making. Angelo Sheridan, Nov 16, 2020,13:28 CLAIRE PENDLETON,MED STUDENT Nov 16, 2020 08:28 ANGELO SHERIDAN MD Nov 16, 2020 13:40
--- NOTE | 2020-11-16 08:51 | Diagnostic Imaging Report ---
CHEST 1 VIEW, AP/PA ONLY Indication: Dyspnea Comparison: 11/15/2020 Findings: Stable left IJ Port-A-Cath with tip terminating in the region of the left lower internal jugular vein. Ill-defined perihilar opacities have not changed. No pleural effusion or pneumothorax. Stable enlargement of the cardiac silhouette. Impression: 1. Stable perihilar and basilar opacities that could be due to infection, aspiration or atelectasis. Dictated by: Dictated on workstation # [id number]
[2020-11-16] MEDS ORDERED: TIOT18CA2 IH (09:35)
[2020-11-16] MEDS ORDERED: RT-ALBUINH IH (09:35)
[2020-11-16] MEDS ORDERED: LORA-405 PO (09:35)
[2020-11-16] MEDS ORDERED: QUET25TA34 PO (09:35)
[2020-11-16] MEDS ORDERED: GABA300C PO (09:35)
[2020-11-16] MEDS: SUCRALFATE 1 GM (CARAFATE) TAB PO SCH ×2 (12:08→21:04)
--- NOTE | 2020-11-16 15:02 | Occupational Therapy Eval ---
OT Evaluation-General/PLF Medical Diagnosis Admission Date Nov 15, 2020 at 11:50 Medical Diagnosis: acute chronic resp failure with hypoxemia Onset Date: Nov 15, 2020 Therapy Diagnosis Therapy Diagnosis: decreased ADL Status, weakness Precautions Precautions/Isolations: Fall Prevention, Contact/Enteric Isolation Referral Physician: Fatimah Referral Reason: Evaluation/Treatment Medical History Pertinent Medical History: COPD, DM, GERD, Hypothroidism Additional Medical History CHF, anxiety/depression Current History Presents from [facility] via EMS due to lethargy and unresponsiveness. Pt recovered from COVID-19 ~1 month ago, baseline 3L O2. Reviewed History: Yes Social History Home: [facility] ([facility]) ADL-Prior Level of Function SCALE: Activities may be completed with or without assistive devices. 1-Ekxwdqqvmc-ockuspd completes the activity by him/herself with no assistance from a helper. 5-Set-up or Clean-up Assistance-helper sets up or cleans up; patient completes activity. [place] assists only prior to or following the activity. 4-Supervision or Touching Assistance-helper provides verbal cues and/or touching/steadying and/or contact guard assistance as patient completes activity. Assistance may be provided throughout the activity or intermittently. 3-Partial/Moderate Assistance-helper does LESS THAN HALF the effort. [place] lifts, holds or supports trunk or limbs, but provides less than half the effort. 2-Substantial/Maximal Assistance-helper does MORE THAN HALF the effort. [place] lifts or holds trunk or limbs and provides more than half the effort. 0-Hiokzntzn-zolnih does ALL the effort. Patient does none of the effort to complete the activity. Or, the assistance of 2 or more helpers is required for the patient to complete the activity. If activity was not attempted, code reason: 7-Patient Refused. 9-Not Applicable-not attempted and the patient did not perform the activity before the current illness, exacerbation or injury. 10-Not Attempted due to Environmental Limitations-(lack of equipment, weather restraints, etc.). 88-Not Attempted due to Medical Conditions or Safety Concerns. ADL PLOF Comments Pt reports living in an apartment in [place], but recently has been at [facility] since she had COVID-19. Pt indicates she has assistance at [facility] with all ADLS, she has been unable to walk but has been receiving therapy where she has stood at a walker. Self Care: Needed Some Help Functional Cognition: Independent DME/Equipment Comments [facility] OT Current Status Subjective Pt laying in bed, agreeable to OT evaluation and tx. Pt expresses wishes to eventually return home to apartment in [place], but she is unsure she would have the assistance required if she went home. Mental Status/Objective Patient Orientation: Person, Place, Situation Attachments: Oxygen Current Glasses/Contacts: Yes Hearing Aids: No Dentures/Partials: Yes Hand Dominance: Right Upper Extremity ROM BUE shoulder flexion to approx 120 degrees Upper Extremity Coordination WFL Upper Extremity Sensation WFL, pt denies tingling/numbness Other Treatments Pt laying in bed, OT educated pt on purpose and benefit of OT, she verbalized understanding. Pt provided information about PLOF and participate in UE screen. In order to increase BUE strength and activity tolerance, pt completed x10 reps AROM of each of the following movements, BUEs: shoulder flexion, elbow flexion, elbow extension. Pt took rest breaks as needed, O2 sat remained above 92% throughout tx. Post tx, pt laying in bed, call light in reach and all needs met. Education OT Patient Education: Correct positioning, Energy conservation, Exercise program, Modified ADL techniques, Progress toward Goal/Update tx plan, Purpose of tx/functional activities, Rehab process Teaching Recipient: Patient Teaching Methods: Discussion Response to Teaching: Verbalize Understanding, Reinforcement Needed OT Skilled Nursing Goals Skilled Nursing Goals Time Frame: Dec 03, 2020 Eating (QC): 5 Oral Hygiene (QC): 5 Toileting Hygiene (QC): 3 Shower/Bathe Self (QC): 2 Upper Body Dressing (QC): 3 Lower Body Dressing (QC): 2 On/Off Footwear (QC): 2 Additional Goals: 1-Demonstrate ADL Tasks, 2-Verbalize Understanding, 3- ImproveStrength/Cinthia 1=Demonstrate adherence to instructed precautions during ADL tasks. 2=Patient will verbalize/demonstrate understanding of assistive devices/modifications for ADL. 3=Patient will improve strength/tolerance for activity to enable patient to perform ADL's. OT Education/Plan Problem List/Assessment Assessment: Decreased Activ Tolerance, Decreased UE Strength, Impaired I ADL's, Impaired Self-Care Skills Pt would benefit from skilled OT services in order to increase BUE strength and activity tolerance, as well as increase safety and independence with ADLs and functional transfers to maximize LOF. Discharge Recommendations Plan/Recommendations: Continue POC Therapy Discharge Recommendati: Other, See Comments (SNF), Post Acute OT Treatment Plan/Plan of Care Patient would benefit from OT for education, treatment and training to promote independence in ADL's, mobility, safety and/or upper extremity function for ADL's. Plan of Care: ADL Retraining, Functional Mobility, UE Funct Exercise/Act Treatment Duration: Dec 03, 2020 Frequency: 5 times per week Estimated Hrs Per Day: .25 hour per day Rehab Potential: Guarded Time/GCodes Start Time: 14:12 Stop Time: 14:25 Total Time Billed (hr/min): 13 Billed Treatment Time 1, ELEUTERIO SOOD OT Nov 16, 2020 15:02
--- NOTE | 2020-11-16 15:21 | Physical Therapy Evaluation ---
PT Evaluation-General Medical Diagnosis Admission Date Nov 15, 2020 at 11:50 Medical Diagnosis: acute chronic resp failure with hypoxemia Onset Date: Nov 15, 2020 Therapy Diagnosis Therapy Diagnosis: debility/weakness Precautions Precautions/Isolations: Fall Prevention, Contact/Enteric Isolation Referral Physician: Fatimah Reason for Referral: Evaluation/Treatment Medical History Pertinent Medical History: COPD, DM, GERD, Hypothroidism Additional Medical History morbid obesity [place] to letharic and unresponsive Reviewed History: Yes Social History Home: Retirement ([facility]) Prior Prior Level of Function SCALE: Activities may be completed with or without assistive devices. 4-Wfyseqqctq-ciisepu completes the activity by him/herself with no assistance from a helper. 5-Set-up or Clean-up Assistance-helper sets up or cleans up; patient completes activity. [place] assists only prior to or following the activity. 4-Supervision or Touching Assistance-helper provides verbal cues and/or touching/steadying and/or contact guard assistance as patient completes activity. Assistance may be provided throughout the activity or intermittently. 3-Partial/Moderate Assistance-helper does LESS THAN HALF the effort. [place] lifts, holds or supports trunk or limbs, but provides less than half the effort. 2-Substantial/Maximal Assistance-helper does MORE THAN HALF the effort. [place] lifts or holds trunk or limbs and provides more than half the effort. 6-Eaclwjsml-wltkqp does ALL the effort. Patient does none of the effort to complete the activity. Or, the assistance of 2 or more helpers is required for the patient to complete the activity. If activity was not attempted, code reason: 7-Patient Refused. 9-Not Applicable-not attempted and the patient did not perform the activity before the current illness, exacerbation or injury. 10-Not Attempted due to Environmental Limitations-(lack of equipment, weather restraints, etc.). 88-Not Attempted due to Medical Conditions or Safety Concerns. Bed Mobility: 1 Transfers (B,C,W/C): 1 (Jonathan Lift per facility) Gait: 9 Stairs: 9 Wheelchair Mobility: 1 Indoor Mobility (Ambulation): Not [place] Stairs: Not [place] PT called facility, RN reports patient is a Jonathan lift and unmotivated to participate in care. PT Evaluation-Current Subjective Patient is in bed and agrees to PT. Objective Patient Orientation: Confused ROM/Strength ROM Lower Extremities limited bilaterally due to obesity and immobility Strength Lower Extremities 2-/5 grossly bilaterally Integumentary/Posture Integumentary refer to nursing notes Bowel Incontinence: Yes Bladder Incontinence: Reilly Cath Neuromuscular (Tone, Coordination, Reflexes) severely diminished coordination due to inactivity PLOF Sensory Vision: Functional Hearing: Functional Hand Dominance: Right Transfers Roll Left to Right (QC): 1 (x 2) Jonathan Lift for all transfers (PLOF) Gait Does the Patient Walk?: No and Walking Goal NOT indicated Assessment/Needs 60 y.o. female, will be seen short term by skilled PT to address functional strength and exercise program. Per alf facility, patient is depende nt with all care PLOF. Rehab Potential: Poor PT Residential Goals Master Baker Goals PT Master Baker Goals Time Frame: Nov 24, 2020 Roll Left & Right (QC): 1 PT Plan Problem List Problem List: Activity Tolerance, Functional Strength, Safety, Transfer, Bed Mobility, ROM Treatment/Plan Treatment Plan: Continue Plan of Care Treatment Plan: Bed Mobility, Education, Functional Activity Cinthia, Functional Strength, Safety, Therapeutic Exercise, Transfers (Jonathan) Treatment Duration: Nov 24, 2020 Frequency: 5 times per week Estimated Hrs Per Day: .25 hour per day Time/GCodes Time In: 1445 Time Out: 1501 Total Billed Treatment Time: 16 Total Billed Treatment 1 visit EVModC 16 min JOHN RAMIREZ PT Nov 16, 2020 15:21
[2020-11-16] MEDS: OLANZapine 5 MG (ZyPREXA) TAB PO SCH (21:03)
[2020-11-16] MEDS: GABAPENTIN 300 MG (NEURONTIN) CAP PO SCH (21:03)
[2020-11-16] MEDS: ASCORBIC ACID (VIT C) 500 MG TABLET PO SCH (21:04)
[2020-11-16 22:27] VITALS: BP 171/107
[2020-11-17] MEDS: CEFEPIME 1,000 MG/SWFI 10 ML IV PUSH IV SCH ×10 (00:22→23:14)
[2020-11-17 02:05] LABS: ABG BASE EXCESS 8.7 MMOL/L (-2.5-2.5); ABG OXYGEN SATURATION 97 % (94-100); ABG PCO2 49 MMHG (35-45); ABG PH 7.44 (7.37-7.43); ABG PO2 86 MMHG (79-93); ABG TCO2 34.7 MMOL/L (21.0-31.0)
[2020-11-17] MEDS: RT-ALBUTEROL/IPRATROPIUM 3 ML (DUONEB) VIAL INH SCH ×6 (02:05→22:42)
[2020-11-17 02:06] LABS: ALLENS TEST YES-POS; PATIENT TEMP 36.8; VENTILATOR NO
[2020-11-17 02:07] LABS: BASOPHILS % (AUTO) 0 % (0-10); EOSINOPHILS % (AUTO) 0 % (0-10); HEMATOCRIT 30 % (35-52); HEMOGLOBIN 9.2 g/dL (11.5-16.0); LYMPHOCYTES # (AUTO) 0.9 10^3/uL (1.0-4.0); LYMPHOCYTES % (AUTO) 13 % (12-44); MEAN CORPUSCULAR HEMOGLOBIN 26 pg (25-34); MEAN CORPUSCULAR HGB CONC 31 g/dL (32-36); MEAN CORPUSCULAR VOLUME 86 fL (80-99); MONOCYTES # (AUTO) 0.3 10^3/uL (0.0-1.0); MONOCYTES % (AUTO) 5 % (0-12); NEUTROPHILS # (AUTO) 6.1 10^3/uL (1.8-7.8); NEUTROPHILS % (AUTO) 82 % (42-75); PLATELET COUNT 101 10^3/uL (130-400); WHITE BLOOD COUNT 7.4 10^3/uL (4.3-11.0)
[2020-11-17 02:14] LABS: CHLORIDE 96 MMOL/L (98-107); SODIUM 134 MMOL/L (135-145)
[2020-11-17 02:15] LABS: GLUCOSE 341 MG/DL (70-105)
[2020-11-17 02:17] LABS: CARBON DIOXIDE 30 MMOL/L (21-32)
[2020-11-17 02:19] LABS: CREATININE SERUM 0.71 MG/DL (0.60-1.30); GFR ESTIMATED > 60; PHOSPHORUS 2.1 MG/DL (2.3-4.7)
[2020-11-17 02:20] LABS: BUN/CREATININE RATIO 32
[2020-11-17 02:22] LABS: MAGNESIUM 2.1 MG/DL (1.6-2.4)
[2020-11-17] MEDS: NOREPINEPHRINE 4 MG/250 ML 250 ML IV SCH (03:03)
[2020-11-17] MEDS: KCL 20 MEQ TAB (K-DUR) PO SCH (03:04)
[2020-11-17] MEDS: POTASSIUM CL 10MEQ/50ML IVPB 50 ML IV SCH (03:04)
[2020-11-17] MEDS: MAGNESIUM 1 GM/100 ML IVPB 100 ML IV SCH (03:04)
--- NOTE | 2020-11-17 04:50 | Pulmonary Progress Note ---
Subjective Time Seen by a Provider: 04:44 Sepsis Event Evaluation Height, Weight, BMI Height: '" Weight: lbs. oz. kg; 54.40 BMI Method: Focused Exam Lactate Level 11/15/20 15:49: Lactic Acid Level 2.64*H 11/15/20 18:00: Lactic Acid Level 2.41*H 11/15/20 20:30: Lactic Acid Level 1.70 Exam Exam Vital Signs Date Time Temp Pulse Resp B/P (MAP) Pulse Ox O2 Delivery O2 Flow Rate FiO2 11/17/20 04:00 86 16 137/82 (106) 94 Nasal Cannula 3.00 11/17/20 03:00 90 17 137/86 (108) 95 Nasal Cannula 3.00 11/17/20 02:05 93 Nasal Cannula 3.00 11/17/20 02:00 94 Nasal Cannula 3.00 11/17/20 02:00 90 14 151/94 (114) 94 NIV Bilevel 35.00 11/17/20 01:57 98 11/17/20 01:00 95 18 158/97 (119) 93 NIV Bilevel 35.00 11/17/20 00:30 36.4 93 NIV Bilevel 35.00 11/17/20 00:29 93 High Flow N/C 3.00 11/17/20 00:00 92 17 151/91 (110) 90 Nasal Cannula 2.00 11/16/20 23:00 98 16 157/102 (120) 91 Nasal Cannula 2.00 11/16/20 22:27 94 19 95 35.00 11/16/20 22:00 98 171/107 (128) 95 Nasal Cannula 2.00 11/16/20 21:00 107 170/106 (127) 93 Nasal Cannula 2.00 11/16/20 20:30 93 High Flow N/C 3.00 11/16/20 20:00 107 17 151/88 (109) 92 Nasal Cannula 2.00 11/16/20 19:10 108 11/16/20 19:00 108 148/86 (106) 92 Nasal Cannula 2.00 11/16/20 19:00 36.6 24 Nasal Cannula 3.00 11/16/20 18:19 93 Nasal Cannula 2.00 11/16/20 18:00 113 33 151/64 (93) 92 Nasal Cannula 2.00 11/16/20 17:00 110 24 149/83 (105) 91 Nasal Cannula 2.00 11/16/20 16:40 97 High Flow N/C 6.00 11/16/20 16:00 109 22 145/90 (108) 90 Nasal Cannula 2.00 11/16/20 16:00 Nasal Cannula 2.00 11/16/20 15:56 92 Nasal Cannula 5.00 11/16/20 15:00 110 16 142/85 (104) 94 Nasal Cannula 5.00 11/16/20 14:00 112 19 139/79 (99) 92 Nasal Cannula 5.00 11/16/20 13:05 113 11/16/20 13:00 113 17 148/77 (100) 94 Nasal Cannula 5.00 11/16/20 12:00 112 11 155/98 (117) 95 Nasal Cannula 5.00 11/16/20 12:00 97 High Flow N/C 6.00 11/16/20 11:04 37.0 11/16/20 11:00 112 11 146/90 (108) 94 Nasal Cannula 5.00 11/16/20 10:54 94 Nasal Cannula 5.00 11/16/20 10:00 114 11 141/86 (104) 97 Nasal Cannula 5.00 11/16/20 09:00 109 11 144/86 (105) 99 NIV Bilevel 35.00 11/16/20 08:00 97 High Flow N/C 10.00 11/16/20 08:00 105 14 137/69 (91) 86 NIV Bilevel 35.00 11/16/20 07:23 35.3 11/16/20 07:01 99 13 96 45.00 11/16/20 07:00 94 14 126/67 (86) 95 NIV Bilevel 35.00 11/16/20 06:48 97 11/16/20 06:00 90 131/79 (96) 94 NIV Bilevel 45.00 11/16/20 05:00 99 29 142/90 (107) 95 NIV Bilevel 45.00 l I & O 11/17/20 07:00 Intake Total 1890 ml Output Total 2550 ml Balance -660 ml Height & Weight Height: '" Weight: lbs. oz. kg; 54.40 BMI Method: General Appearance: No Apparent Distress, Obese HEENT: PERRL/EOMI, Pharynx Normal Neck: Full Range of Motion, Supple Respiratory: Lungs Clear, No Accessory Muscle Use Cardiovascular: No Murmur, Normal Peripheral Pulses, Tachycardia Capillary Refill: Less Than 3 Seconds Gastrointestinal: other (Multiple scattered ulcers under pannus bilaterally of various sizes, ranging up to 3 cm.) Extremity: Normal Capillary Refill, No Calf Tenderness Neurologic/Psychiatric: Alert, No Motor/Sensory Deficits Skin: Other Results Lab Laboratory Tests 11/15/20 09:35 11/16/20 03:06 11/17/20 01:50 Assessment/Plan Assessment/Plan Acute respiratory failure -Currently BiPAP -Now on 2 liter NC -Monitor Severe sepsis - LR at 50ml/hr Chronic frost with UTI -Cefepime Hypophos -Replace Skin wounds -Wound care consulted Type II DM Hold home medications -SSI Hypothyroid MICAH GAMEZ DO Nov 17, 2020 04:50
[2020-11-17] MEDS: ENOXAPARIN 300 MG/3 ML (LOVENOX) MULTI-DOSE VIAL SQ SCH ×2 (05:31→17:19)
[2020-11-17] MEDS: inSUlin ASPART (NovoLOG) 1 UNIT/0.01 ML (CHARGE PER UNIT) SC SCH ×4 (05:32→20:44)
[2020-11-17] MEDS: UMECLIDINIUM BROMIDE (INCRUSE ELLIPTA) 7'S IH SCH (07:14)
--- NOTE | 2020-11-17 07:57 | Diagnostic Imaging Report ---
INDICATION: Shortness of breath Portable chest 12:24 AM Left IJ Port-A-Cath tip projects over the left intrajugular vein. Right upper extremity PICC line tip projects over the SVC. Heart appears enlarged. There are some faint infiltrate in both lungs. There are no effusions or pneumothoraces. IMPRESSION: Faint bilateral alveolar infiltrate in the lungs. No significant change compared to the previous day. Dictated by: Dictated on workstation # [id number]
[2020-11-17] MEDS ORDERED: SODIUM PHOSPHATE INJ 30 MM in NS (IVPB) 250 ML INJ ONE (08:00)
[2020-11-17] MEDS: SUCRALFATE 1 GM (CARAFATE) TAB PO SCH ×3 (08:07→20:42)
[2020-11-17] MEDS: ASCORBIC ACID (VIT C) 500 MG TABLET PO SCH ×2 (08:07→20:42)
[2020-11-17] MEDS: GABAPENTIN 300 MG (NEURONTIN) CAP PO SCH ×2 (08:07→20:42)
[2020-11-17] MEDS: PANTOPRAZOLE 40 MG (PROTONIX) TAB PO SCH (08:07)
[2020-11-17] MEDS: LACTATED RINGERS 1,000 ML IV SCH (08:08)
[2020-11-17] MEDS: PANTOPRAZOLE 40 MG (PROTONIX) VIAL IV SCH (08:08)
[2020-11-17] MEDS: MICONAZOLE 2% POWDER (DESENEX AF) 90 GM TOP SCH ×2 (08:08→20:44)
--- NOTE | 2020-11-17 12:06 | Progress Note - Hospitalist ---
CLAIRE PENDLETON,MED STUDENT 11/17/20 1206: Subjective HPI/CC On Admission Date Seen by Provider: Nov 17, 2020 Patient is a 60yo female with a PMH of COPD, CHF, hypothyroidism and T2DM who presents from [facility], [place] via EMS due to lethargy and unresponsiveness. She recently recovered from COVID-19 one month ago, and wears a baseline of 3L of O2. Staff noted that her O2 sat was 90% on 6L this morning, and at the time EMS was called she was on 12L. EMS switched her to high flow at 10L and she was 94%. On arrival she was drowsy but answered questions. She complained of nausea, diarrhea and increased thirst. A frost catheter is in place due to urinary retention and was draining dark urine. CXR revealed bilateral mild lung base opacities, and WBC is elevated. She was started on cefepime and vancomycin, but became flushed and hypotensive. The vancomycin was held due to suspected red man syndrome, and her flushing and hypotension subsequently improved. She was started on BiPAP, given Solumedrol. and admitted to the ICU. Subjective/Events-last exam Doing better this morning, continues to be more awake and alert. Now off of BiPAP, currently on 3L via NC. Reports SOB improved today. Focused Exam Lactate Level 11/15/20 15:49: Lactic Acid Level 2.64*H 11/15/20 18:00: Lactic Acid Level 2.41*H 11/15/20 20:30: Lactic Acid Level 1.70 Objective Exam Vital Signs Vital Signs Date Time Temp Pulse Resp B/P (MAP) Pulse Ox O2 Delivery O2 Flow Rate FiO2 11/17/20 11:12 36.4 11/17/20 10:07 93 Nasal Cannula 2.00 11/17/20 07:50 95 20 140/86 (104) 11/16/20 04:00 45 Capillary Refill : Less Than 3 Seconds General Appearance: No Apparent Distress, Chronically ill, Obese HEENT: PERRL/EOMI, Pharynx Normal Neck: Full Range of Motion, Non Tender, Supple Respiratory: No Accessory Muscle Use, No Respiratory Distress, Decreased Breath Sounds Cardiovascular: Regular Rate, Rhythm, No Murmur, Normal Peripheral Pulses Gastrointestinal: Normal Bowel Sounds, Non Tender, Soft Extremity: Normal Capillary Refill, Non Tender, No Calf Tenderness, Pedal Edema Neurologic/Psychiatric: Alert, Oriented x3 Results/Procedures Lab Laboratory Tests 11/17/20 01:50 Patient resulted labs reviewed. Assessment/Plan Assessment and Plan Assess & Plan/Chief Complaint UTI with severe sepsis On cefepime Cultures positive for Klebsiella, awaiting sensitivities On IV fluids Lactic acid improved Acute respiratory failure with hypercapnia and hypoxia Currently off BiPAP, on 3L NC Plan to move to 4th floor today Thrombocytopenia Likely drug-induced vs dilutional Continue to monitor Anemia Continue to monitor Hypomagnesemia Resolved Type II DM Hold home medications Sliding scale insulin Increase Levemir Hypothyroid Hold home medications ANGELO SHERIDAN MD 11/18/20 1426: Subjective HPI/CC On Admission Time Seen by Provider: 10:30 Assessment/Plan Assessment and Plan Assess & Plan/Chief Complaint Patient much improved today. More alert. No new complaints. Plan to increase Levemir to home dosing. Will transfer to the floor. Remain in bariatric bed. Supervisory-Addendum Brief Verification & Attestation Participated in pt care: history, MDM, physical Personally performed: exam, history, MDM, supervision of care Care discussed with: Medical Student Procedures: n/a Results interpretation: Verified all documentation Verification and Attestation of Medical Student E/M Service A medical student performed and documented this service in my presence. I reviewed and verified all information documented by the medical student and made modifications to such information, when appropriate. I personally performed the physical exam and medical decision making. Angelo Sheridan, Nov 18, 2020,14:25 CLAIRE PENDLETON,MED STUDENT Nov 17, 2020 12:06 ANGELO SHERIDAN MD Nov 18, 2020 14:26
--- NOTE | 2020-11-17 13:32 | Occupational Ther Daily Note ---
OT Current Status-Daily Note Subjective No pain reported. Mental Status/Objective Patient Orientation: Unable to Assess Attachments: IV, Oxygen, Telemetry ADL-Treatment Therapy Code Descriptions/Definitions Functional [place] Measure: 0=Not Assessed/NA 4=Minimal Assistance 1=Total Assistance 5=Supervision or Setup 2=Maximal Assistance 6=Modified [place] 3=Moderate Assistance 7=Complete IndependenceSCALE: Activities may be completed with or without assistive devices. 5-Gtlpgbcxyh-trmlwev completes the activity by him/herself with no assistance from a helper. 5-Set-up or Clean-up Assistance-helper sets up or cleans up; patient completes activity. [place] assists only prior to or following the activity. 4-Supervision or Touching Assistance-helper provides verbal cues and/or touching/steadying and/or contact guard assistance as patient completes activity. Assistance may be provided throughout the activity or intermittently. 3-Partial/Moderate Assistance-helper does LESS THAN HALF the effort. [place] lifts, holds or supports trunk or limbs, but provides less than half the effort. 2-Substantial/Maximal Assistance-helper does MORE THAN HALF the effort. [place] lifts or holds trunk or limbs and provides more than half the effort. 6-Hrcjbdrmm-mdyylr does ALL the effort. Patient does none of the effort to complete the activity. Or, the assistance of 2 or more helpers is required for the patient to complete the activity. If activity was not attempted, code reason: 7-Patient Refused. 9-Not Applicable-not attempted and the patient did not perform the activity before the current illness, exacerbation or injury. 10-Not Attempted due to Environmental Limitations-(lack of equipment, weather restraints, etc.). 88-Not Attempted due to Medical Conditions or Safety Concerns. Other Treatment Pt. in bed. Has been transferred to air bed. Pt. verbalizes that she does not stand at [facility], and does not even sit in wheelchair. States that she went there to get stronger, but got sick before she could. Pt. washes face with warm washcloth, and is able to brush front part of hair. OT assists with brushing back of hair. Pt. completes 4 bilateral UE AROM exercises at bed level, x 10 reps each in all planes for increased strength. Pt. also completes ankle pumps. Attempts with cues to hold bedrails and pull self forward, as in sitting up position using abdominals. Pt. has no strength to do this. Encouraged pt. to attempt roll in bed. Pt. dependent with this. Pt. is encouraged to work on exercises and movement on her own, even when therapy not present. Encouraged her it is very important for her to move and attempt using muscles. Pt. verbalizes understanding. Pt. states that she is in comfortable position when OT leaves room. All needs met. Education OT Patient Education: Correct positioning, Exercise program, Purpose of tx/functional activities, Reviewed precautions, Rehab process Teaching Recipient: Patient Teaching Methods: Demonstration, Discussion OT Manager Loan Goals Manager Loan Goals Time Frame: Dec 03, 2020 Eating (QC): 5 Oral Hygiene (QC): 5 Toileting Hygiene (QC): 3 Shower/Bathe Self (QC): 2 Upper Body Dressing (QC): 3 Lower Body Dressing (QC): 2 On/Off Footwear (QC): 2 Additional Goals: 1-Demonstrate ADL Tasks, 2-Verbalize Understanding, 3-ImproveStrength/Cinthia 1=Demonstrate adherence to instructed precautions during ADL tasks. 2=Patient will verbalize/demonstrate understanding of assistive devices/modifications for ADL. 3=Patient will improve strength/tolerance for activity to enable patient to per form ADL's. OT Education/Plan Problem List/Assessment Assessment: Decreased Activ Tolerance, Decreased UE Strength, Dependent Transfers, Impaired Bed Mobility, Impaired I ADL's, Impaired Self-Care Skills Pt would benefit from skilled OT services in order to increase BUE strength and activity tolerance, as well as increase safety and independence with ADLs and functional transfers to maximize LOF. Discharge Recommendations Plan/Recommendations: Continue POC Therapy Discharge Recommendati: 24 Hour Supervision Treatment Plan/Plan of Care Treatment,Training & Education: Yes Patient would benefit from OT for education, treatment and training to promote independence in ADL's, mobility, safety and/or upper extremity function for ADL's. Plan of Care: ADL Retraining, Functional Mobility, UE Funct Exercise/Act Treatment Duration: Dec 03, 2020 Frequency: 5 times per week Estimated Hrs Per Day: .25 hour per day Agreement: Yes Rehab Potential: Guarded Time/GCodes Start Time: 10:38 Stop Time: 11:00 Total Time Billed (hr/min): 22 Billed Treatment Time 1, Ex x 22minutes TRUDY AMARO OT Nov 17, 2020 13:32
--- NOTE | 2020-11-17 13:44 | Physical Therapy Daily Note ---
PT Daily Note-Current Subjective Patient in bed pre tx, agrees to PT, has no complaints of pain. Patient was just bathed by nursing, they report that patient needs several people just to roll and yells in pain and fear with rolling but were able to do it for bathing. PT will have patient perform BLE exercises. Appearance Patient in bed post tx with nurse call, phone, tray, all needs met. Mental Status Patient Orientation: Person, Confused Attachments: SCD's, Oxygen, IV Transfers SCALE: Activities may be completed with or without assistive devices. 3-Nchkkhzujw-hqnotzg completes the activity by him/herself with no assistance from a helper. 5-Set-up or Clean-up Assistance-helper sets up or cleans up; patient completes activity. [place] assists only prior to or following the activity. 4-Supervision or Touching Assistance-helper provides verbal cues and/or touchin g/steadying and/or contact guard assistance as patient completes activity. Assistance may be provided throughout the activity or intermittently. 3-Partial/Moderate Assistance-helper does LESS THAN HALF the effort. [place] lifts, holds or supports trunk or limbs, but provides less than half the effort. 2-Substantial/Maximal Assistance-helper does MORE THAN HALF the effort. [place] lifts or holds trunk or limbs and provides more than half the effort. 0-Aennkaywi-amcgnt does ALL the effort. Patient does none of the effort to complete the activity. Or, the assistance of 2 or more helpers is required for the patient to complete the activity. If activity was not attempted, code reason: 7-Patient Refused. 9-Not Applicable-not attempted and the patient did not perform the activity before the current illness, exacerbation or injury. 10-Not Attempted due to Environmental Limitations-(lack of equipment, weather restraints, etc.). 88-Not Attempted due to Medical Conditions or Safety Concerns. Exercises Supine Ex: Ankle pumps, Quad Set, Glut sets, Heel Slides (AAROM), Short Arc Quads (AAROM), Straight leg raise (AAROM), Hip abd/add (AAROM) Supine Reps: 20 Treatments BLE supine exercises Assessment Current Status: Poor Progress AAROM with most of the ROM PT Longterm Goals College And Career Counselor Goals PT College And Career Counselor Goals Time Frame: Nov 24, 2020 Roll Left & Right (QC): 1 PT Plan Problem List Problem List: Activity Tolerance, Functional Strength, Safety, Balance, Gait, Transfer, Bed Mobility, ROM Treatment/Plan Treatment Plan: Continue Plan of Care Treatment Plan: Bed Mobility, Education, Functional Activity Cinthia, Functional Strength, Safety, Therapeutic Exercise, Transfers (Jonathan) Treatment Duration: Nov 24, 2020 Frequency: 5 times per week Estimated Hrs Per Day: .25 hour per day Safety Risks/Education Patient Education: Correct Positioning, Safety Issues Teaching Recipient: Patient Teaching Methods: Demonstration, Discussion Response to Teaching: Reinforcement Needed Time/GCodes Time In: 1320 Time Out: 1334 Total Billed Treatment Time: 14 Total Billed Treatment 1 visit EX 14' CAPO FONSECA PT Nov 17, 2020 13:44
[2020-11-17] MEDS ORDERED: WATER (STERILE) FOR INJECTION 10 ML ONE ×2 (17:44→23:05)
[2020-11-17] MEDS ORDERED: CEFEPIME 1 GM/10 ML (MAXIPIME) VIAL ONE ×2 (17:44→23:05)
[2020-11-17] MEDS: OLANZapine 5 MG (ZyPREXA) TAB PO SCH (20:42)
[2020-11-18] MEDS: RT-ALBUTEROL/IPRATROPIUM 3 ML (DUONEB) VIAL INH SCH ×6 (02:24→22:30)
[2020-11-18 04:25] LABS: BASOPHILS % (AUTO) 0 % (0-10); EOSINOPHILS % (AUTO) 1 % (0-10); HEMATOCRIT 30 % (35-52); LYMPHOCYTES # (AUTO) 1.4 10^3/uL (1.0-4.0); LYMPHOCYTES % (AUTO) 33 % (12-44); MEAN CORPUSCULAR HEMOGLOBIN 26 pg (25-34); MEAN CORPUSCULAR HGB CONC 30 g/dL (32-36); MEAN CORPUSCULAR VOLUME 88 fL (80-99); MEAN PLATELET VOLUME 10.4 fL (9.0-12.2); MONOCYTES # (AUTO) 0.3 10^3/uL (0.0-1.0); MONOCYTES % (AUTO) 6 % (0-12); NEUTROPHILS # (AUTO) 2.5 10^3/uL (1.8-7.8); NEUTROPHILS % (AUTO) 60 % (42-75); PLATELET COUNT 109 10^3/uL (130-400); WHITE BLOOD COUNT 4.1 10^3/uL (4.3-11.0)
[2020-11-18 04:32] LABS: CHLORIDE 100 MMOL/L (98-107); SODIUM 139 MMOL/L (135-145)
[2020-11-18 04:34] LABS: CALCIUM 7.8 MG/DL (8.5-10.1); GLUCOSE 211 MG/DL (70-105)
[2020-11-18 04:36] LABS: CARBON DIOXIDE 30 MMOL/L (21-32)
[2020-11-18 04:38] LABS: CREATININE SERUM 0.71 MG/DL (0.60-1.30); GFR ESTIMATED > 60; PHOSPHORUS 2.7 MG/DL (2.3-4.7)
[2020-11-18 04:39] LABS: BUN/CREATININE RATIO 37
[2020-11-18 04:40] LABS: MAGNESIUM 1.8 MG/DL (1.6-2.4)
[2020-11-18] MEDS: POTASSIUM CL 10MEQ/50ML IVPB 50 ML IV SCH (05:01)
[2020-11-18] MEDS: KCL 20 MEQ TAB (K-DUR) PO SCH (05:01)
[2020-11-18] MEDS: MAGNESIUM 1 GM/100 ML IVPB 100 ML IV SCH (05:01)
[2020-11-18] MEDS ORDERED: WATER (STERILE) FOR INJECTION 10 ML ONE (05:03)
[2020-11-18] MEDS ORDERED: CEFEPIME 1 GM/10 ML (MAXIPIME) VIAL ONE (05:03)
[2020-11-18] MEDS: ENOXAPARIN 300 MG/3 ML (LOVENOX) MULTI-DOSE VIAL SQ SCH ×2 (05:12→16:08)
[2020-11-18] MEDS: LACTATED RINGERS 1,000 ML IV SCH (05:12)
[2020-11-18] MEDS: CEFEPIME 1,000 MG/SWFI 10 ML IV PUSH IV SCH ×2 (05:12)
[2020-11-18] MEDS: inSUlin ASPART (NovoLOG) 1 UNIT/0.01 ML (CHARGE PER UNIT) SC SCH ×4 (05:12→20:34)
--- NOTE | 2020-11-18 06:21 | Pulmonary Progress Note ---
Subjective Time Seen by a Provider: 06:16 Subjective/Events-last exam No complications noted. Sepsis Event Evaluation Height, Weight, BMI Height: '" Weight: lbs. oz. kg; 54.40 BMI Method: Focused Exam Lactate Level 11/15/20 15:49: Lactic Acid Level 2.64*H 11/15/20 18:00: Lactic Acid Level 2.41*H 11/15/20 20:30: Lactic Acid Level 1.70 Exam Exam Vital Signs Date Time Temp Pulse Resp B/P (MAP) Pulse Ox O2 Delivery O2 Flow Rate FiO2 11/18/20 04:47 36.8 94 18 131/63 (85) 97 Nasal Cannula 2.00 11/18/20 02:25 95 Nasal Cannula 2.00 11/18/20 01:00 100 11/18/20 00:48 37.0 97 18 121/65 (83) 91 Nasal Cannula 2.00 11/17/20 22:43 93 Nasal Cannula 2.00 11/17/20 21:00 High Flow N/C 3.00 11/17/20 20:30 36.7 98 22 124/80 (95) 93 Nasal Cannula 2.00 11/17/20 19:01 93 Nasal Cannula 3.00 11/17/20 19:00 100 11/17/20 16:00 35.7 96 16 126/69 (88) 94 Nasal Cannula 3.00 11/17/20 14:35 36.4 96 18 129/71 (90) 94 Nasal Cannula 3.00 11/17/20 14:23 94 Nasal Cannula 2.00 11/17/20 12:48 94 11/17/20 12:04 96 20 114/63 (80) 93 Nasal Cannula 3.00 11/17/20 11:12 36.4 11/17/20 10:07 93 Nasal Cannula 2.00 11/17/20 08:00 High Flow N/C 3.00 11/17/20 07:50 95 20 140/86 (104) 97 Nasal Cannula 3.00 11/17/20 07:49 36.4 11/17/20 07:15 95 Nasal Cannula 3.00 11/17/20 06:55 82 I & O 11/18/20 07:00 Intake Total 2025 ml Output Total 1275 ml Balance 750 ml Height & Weight Height: '" Weight: lbs. oz. kg; 54.40 BMI Method: General Appearance: No Apparent Distress, Chronically ill, Obese HEENT: PERRL/EOMI, Pharynx Normal Neck: Full Range of Motion, Non Tender, Supple Respiratory: No Accessory Muscle Use, No Respiratory Distress, Decreased Breath Sounds Cardiovascular: Regular Rate, Rhythm, No Murmur, Normal Peripheral Pulses Capillary Refill: Less Than 3 Seconds Gastrointestinal: other (Multiple scattered ulcers under pannus bilaterally of various sizes, ranging up to 3 cm.) Extremity: Normal Capillary Refill, Non Tender, No Calf Tenderness, Pedal Edema Neurologic/Psychiatric: Alert, Oriented x3 Skin: Other Results Lab Laboratory Tests 11/17/20 01:50 11/18/20 04:16 Assessment/Plan Assessment/Plan Acute respiratory failure --much improved -Now on 2 liter NC -Monitor Severe sepsis -- resolving Chronic frost with UTI -Cefepime Skin wounds -Wound care consulted Type II DM MICAH GAMEZ DO Nov 18, 2020 06:21
[2020-11-18] MEDS: UMECLIDINIUM BROMIDE (INCRUSE ELLIPTA) 7'S IH SCH (06:39)
[2020-11-18] MEDS: SUCRALFATE 1 GM (CARAFATE) TAB PO SCH ×3 (09:04→20:35)
[2020-11-18] MEDS: GABAPENTIN 300 MG (NEURONTIN) CAP PO SCH ×2 (09:04→20:35)
[2020-11-18] MEDS: PANTOPRAZOLE 40 MG (PROTONIX) TAB PO SCH (09:04)
[2020-11-18] MEDS: ASCORBIC ACID (VIT C) 500 MG TABLET PO SCH ×2 (09:04→20:35)
[2020-11-18] MEDS: MICONAZOLE 2% POWDER (DESENEX AF) 90 GM TOP SCH ×2 (09:05→20:35)
[2020-11-18] MEDS: PANTOPRAZOLE 40 MG (PROTONIX) VIAL IV SCH (09:05)
--- NOTE | 2020-11-18 11:16 | Physical Therapy Daily Note ---
PT Daily Note-Current Subjective Patient agrees to PT. Mental Status Patient Orientation: Confused Attachments: Reilly Catheter Transfers SCALE: Activities may be completed with or without assistive devices. 0-Hcpqvjrrec-dqyeguf completes the activity by him/herself with no assistance from a helper. 5-Set-up or Clean-up Assistance-helper sets up or cleans up; patient completes activity. [place] assists only prior to or following the activity. 4-Supervision or Touching Assistance-helper provides verbal cues and/or touching/steadying and/or contact guard assistance as patient completes activity. Assistance may be provided throughout the activity or intermittently. 3-Partial/Moderate Assistance-helper does LESS THAN HALF the effort. [place] lifts, holds or supports trunk or limbs, but provides less than half the effort. 2-Substantial/Maximal Assistance-helper does MORE THAN HALF the effort. [place] lifts or holds trunk or limbs and provides more than half the effort. 6-Dugwkwoun-trclvu does ALL the effort. Patient does none of the effort to complete the activity. Or, the assistance of 2 or more helpers is required for the patient to complete the activity. If activity was not attempted, code reason: 7-Patient Refused. 9-Not Applicable-not attempted and the patient did not perform the activity before the current illness, exacerbation or injury. 10-Not Attempted due to Environmental Limitations-(lack of equipment, weather restraints, etc.). 88-Not Attempted due to Medical Conditions or Safety Concerns. Exercises Supine Ex: Ankle pumps, Quad Set, Heel Slides, Straight leg raise, Hip abd/add Supine Reps: 12 (AAROM) Assessment Patient is a [place] transfer PLOF at [place]. Patient is dependent with all mobility. No skilled PT indicated. PT to dismiss patient from services due to dependent PLOF. PT Ceramic Capacitor Processor Goals Group Home Goals PT Ceramic Capacitor Processor Goals Time Frame: Nov 24, 2020 Roll Left & Right (QC): 1 PT Plan Treatment/Plan Treatment Plan: Discontinue PT Treatment Plan: Bed Mobility, Education, Functional Activity Cinthia, Functional Strength, Safety, Therapeutic Exercise, Transfers (Jonathan) Treatment Duration: Nov 24, 2020 Frequency: 5 times per week Estimated Hrs Per Day: .25 hour per day Time/GCodes Time In: 1036 Time Out: 1046 Total Billed Treatment Time: 10 Total Billed Treatment 1 visit EX 10 min JOHN RAMIREZ PT Nov 18, 2020 11:16
[2020-11-18] MEDS ORDERED: CEFEPIME 1,000 MG/SWFI 10 ML IV PUSH IV SCH ×2 (12:00)
[2020-11-18] MEDS: CALCIUM CARBONATE 500 MG (TUMS) TAB.CHEW PO PRN ×2 (12:15→15:26)
--- NOTE | 2020-11-18 13:11 | Progress Note - Hospitalist ---
CLAIRE PENDLETON,MED STUDENT 11/18/20 1311: Subjective HPI/CC On Admission Date Seen by Provider: Nov 18, 2020 Patient is a 60yo female with a PMH of COPD, CHF, hypothyroidism and T2DM who presents from [facility] via EMS due to lethargy and unresponsiveness. She recently recovered from COVID-19 one month ago, and wears a baseline of 3L of O2. Staff noted that her O2 sat was 90% on 6L this morning, and at the time EMS was called she was on 12L. EMS switched her to high flow at 10L and she was 94%. On arrival she was drowsy but answered questions. She complained of nausea, diarrhea and increased thirst. A frost catheter is in place due to urinary retention and was draining dark urine. CXR revealed bilateral mild lung base opacities, and WBC is elevated. She was started on cefepime and vancomycin, but became flushed and hypotensive. The vancomycin was held due to suspected red man syndrome, and her flushing and hypotension subsequently improved. She was started on BiPAP, given Solumedrol. and admitted to the ICU. Subjective/Events-last exam Doing better this morning, now just on 2L NC which is her baseline. Continuing to work with PT. Focused Exam Lactate Level 11/15/20 15:49: Lactic Acid Level 2.64*H 11/15/20 18:00: Lactic Acid Level 2.41*H 11/15/20 20:30: Lactic Acid Level 1.70 Objective Exam Vital Signs Vital Signs Date Time Temp Pulse Resp B/P (MAP) Pulse Ox O2 Delivery O2 Flow Rate FiO2 11/18/20 12:00 35.9 98 18 144/70 (94) 95 Nasal Cannula 2.00 11/16/20 04:00 45 Capillary Refill : Less Than 3 Seconds General Appearance: No Apparent Distress, Chronically ill, Obese HEENT: PERRL/EOMI, Pharynx Normal Neck: Full Range of Motion, Non Tender Respiratory: Lungs Clear, No Accessory Muscle Use, No Respiratory Distress Cardiovascular: Regular Rate, Rhythm, No Murmur, Normal Peripheral Pulses Gastrointestinal: Non Tender, Soft Extremity: Non Tender, No Calf Tenderness, Pedal Edema Neurologic/Psychiatric: Alert, Oriented x3, Normal Mood/Affect Results/Procedures Lab Laboratory Tests 11/18/20 04:16 Patient resulted labs reviewed. Assessment/Plan Assessment and Plan Assess & Plan/Chief Complaint UTI with severe sepsis Reviewed sensitivities, will continue cefepime On IV fluids Acute respiratory failure with hypercapnia and hypoxia Now on baseline of 2L NC Thrombocytopenia Likely drug-induced vs dilutional Continue to monitor Anemia Continue to monitor Hypomagnesemia Resolved Type II DM Hold home medications Sliding scale insulin Increase Levemir Hypothyroid Hold home medications ANGELO SHERIDAN MD 11/18/20 1425: Subjective HPI/CC On Admission Time Seen by Provider: 10:50 Assessment/Plan Assessment and Plan Assess & Plan/Chief Complaint Patient reports feeling much better. Having some heartburn but no other complaints. Agreeable to trying Tums. Reviewed sensitivities. Will deescalate to Ancef. If continues to do well will hopefully DC back to [place] tomorrow. BS control improved with increased Levemir. Supervisory-Addendum Brief Verification & Attestation Participated in pt care: history, MDM, physical Personally performed: exam, history, MDM, supervision of care Care discussed with: Medical Student Procedures: n/a Results interpretation: Verified all documentation Verification and Attestation of Medical Student E/M Service A medical student performed and documented this service in my presence. I reviewed and verified all information documented by the medical student and made modifications to such information, when appropriate. I personally performed the physical exam and medical decision making. Angelo Sheridan, Nov 18, 2020,14:22 CLAIRE PENDLETON,MED STUDENT Nov 18, 2020 13:11 ANGELO SHERIDAN MD Nov 18, 2020 14:25
--- NOTE | 2020-11-18 13:46 | Occupational Ther Daily Note ---
OT Current Status-Daily Note Subjective Pt alert, lying in bed. Pt agrees to therapy. No c/o pain. Mental Status/Objective Patient Orientation: Person, Place, Time ADL-Treatment Nrsg states that pt has been incontinent and is dependent of cleansing self after toileting and when bathing. Therapy Code Descriptions/Definitions Functional Gaines Measure: 0=Not Assessed/NA 4=Minimal Assistance 1=Total Assistance 5=Supervision or Setup 2=Maximal Assistance 6=Modified Gaines 3=Moderate Assistance 7=Complete IndependenceSCALE: Activities may be completed with or without assistive devices. 8-Uwjffuojhs-rytzxnk completes the activity by him/herself with no assistance from a helper. 5-Set-up or Clean-up Assistance-helper sets up or cleans up; patient completes activity. [place] assists only prior to or following the activity. 4-Supervision or Touching Assistance-helper provides verbal cues and/or touching/steadying and/or contact guard assistance as patient completes activity. Assistance may be provided throughout the activity or intermittently. 3-Partial/Moderate Assistance-helper does LESS THAN HALF the effort. Sel[place] lifts, holds or supports trunk or limbs, but provides less than half the effort. 2-Substantial/Maximal Assistance-helper does MORE THAN HALF the effort. [place] lifts or holds trunk or limbs and provides more than half the effort. 0-Oosocnryk-aimmjn does ALL the effort. Patient does none of the effort to complete the activity. Or, the assistance of 2 or more helpers is required for the patient to complete the activity. If activity was not attempted, code reason: 7-Patient Refused. 9-Not Applicable-not attempted and the patient did not perform the activity before the current illness, exacerbation or injury. 10-Not Attempted due to Environmental Limitations-(lack of equipment, weather restraints, etc.). 88-Not Attempted due to Medical Conditions or Safety Concerns. Shower/Bathe Self (QC): 1 Toileting Hygiene (QC): 1 Toilet Transfer (QC): 1 Other Treatment Pt completed 4 exercises, shldr flex/ext, shldr horizontal abd/add, bicep flex/ext and shldr abd/add. 1st set pt complete 10 reps of each shldr exercise and 15 reps bicep. 2nd set pt only able to complete 5 reps and then could not maintain full ROM. After session, pt lying in bed with call light/phone in reach. All needs met in room. OT Director Learning Goals Assisted Goals Time Frame: Dec 03, 2020 Eating (QC): 5 Oral Hygiene (QC): 5 Toileting Hygiene (QC): 3 Shower/Bathe Self (QC): 2 Upper Body Dressing (QC): 3 Lower Body Dressing (QC): 2 On/Off Footwear (QC): 2 Additional Goals: 1-Demonstrate ADL Tasks, 2-Verbalize Understanding, 3- ImproveStrength/Cinthia 1=Demonstrate adherence to instructed precautions during ADL tasks. 2=Patient will verbalize/demonstrate understanding of assistive devices/mod ifications for ADL. 3=Patient will improve strength/tolerance for activity to enable patient to perform ADL's. OT Education/Plan Problem List/Assessment Assessment: Decreased Activ Tolerance, Decreased Safety Aware, Decreased UE Strength, Dependent Transfers, Impaired Bed Mobility, Impaired Coordination, Impaired Funct Balance, Impaired I ADL's, Impaired Self-Care Skills, Restricted Funct UE ROM Pt would benefit from skilled OT services in order to increase BUE strength and activity tolerance, as well as increase safety and independence with ADLs and functional transfers to maximize LOF. Discharge Recommendations Plan/Recommendations: Continue POC Treatment Plan/Plan of Care Patient would benefit from OT for education, treatment and training to promote independence in ADL's, mobility, safety and/or upper extremity function for ADL's. Plan of Care: ADL Retraining, Functional Mobility, UE Funct Exercise/Act Treatment Duration: Dec 03, 2020 Frequency: 5 times per week Estimated Hrs Per Day: .25 hour per day Agreement: Yes Rehab Potential: Guarded Time/GCodes Start Time: 12:49 Stop Time: 13:00 Total Time Billed (hr/min): 11 Billed Treatment Time 1 visit-EX 1 (11 min) TERRANCE CHANG Nov 18, 2020 13:46
[2020-11-18] MEDS: ceFAZolin INJECTION 1,000 MG in WATER (STERILE) FOR INJECTION 10 ML IV SCH (20:35)
[2020-11-18] MEDS: OLANZapine 5 MG (ZyPREXA) TAB PO SCH (20:35)
[2020-11-19] MEDS: RT-ALBUTEROL/IPRATROPIUM 3 ML (DUONEB) VIAL INH SCH ×3 (01:52→10:34)
[2020-11-19 04:34] LABS: BASOPHILS % (AUTO) 0 % (0-10); EOSINOPHILS # (AUTO) 0.1 10^3/uL (0.0-0.3); EOSINOPHILS % (AUTO) 3 % (0-10); HEMATOCRIT 30 % (35-52); HEMOGLOBIN 9.1 g/dL (11.5-16.0); LYMPHOCYTES # (AUTO) 1.5 10^3/uL (1.0-4.0); LYMPHOCYTES % (AUTO) 47 % (12-44); MEAN CORPUSCULAR HEMOGLOBIN 26 pg (25-34); MEAN CORPUSCULAR HGB CONC 30 g/dL (32-36); MEAN CORPUSCULAR VOLUME 87 fL (80-99); MEAN PLATELET VOLUME 10.9 fL (9.0-12.2); MONOCYTES # (AUTO) 0.3 10^3/uL (0.0-1.0); MONOCYTES % (AUTO) 9 % (0-12); NEUTROPHILS # (AUTO) 1.3 10^3/uL (1.8-7.8); NEUTROPHILS % (AUTO) 40 % (42-75); PLATELET COUNT 113 10^3/uL (130-400); WHITE BLOOD COUNT 3.2 10^3/uL (4.3-11.0)
[2020-11-19 04:38] LABS: CHLORIDE 100 MMOL/L (98-107); POTASSIUM 3.9 MMOL/L (3.6-5.0); SODIUM 140 MMOL/L (135-145)
[2020-11-19 04:39] LABS: CALCIUM 7.8 MG/DL (8.5-10.1)
[2020-11-19 04:40] LABS: GLUCOSE 168 MG/DL (70-105)
[2020-11-19 04:41] LABS: CARBON DIOXIDE 31 MMOL/L (21-32)
[2020-11-19 04:43] LABS: PHOSPHORUS 3.3 MG/DL (2.3-4.7)
[2020-11-19 04:44] LABS: CREATININE SERUM 0.61 MG/DL (0.60-1.30); GFR ESTIMATED > 60
[2020-11-19 04:45] LABS: BUN/CREATININE RATIO 30
[2020-11-19 04:46] LABS: MAGNESIUM 1.8 MG/DL (1.6-2.4)
[2020-11-19] MEDS: inSUlin ASPART (NovoLOG) 1 UNIT/0.01 ML (CHARGE PER UNIT) SC SCH (04:46)
[2020-11-19] MEDS: KCL 20 MEQ TAB (K-DUR) PO SCH (04:47)
[2020-11-19] MEDS: POTASSIUM CL 10MEQ/50ML IVPB 50 ML IV SCH (04:47)
[2020-11-19] MEDS: MAGNESIUM 1 GM/100 ML IVPB 100 ML IV SCH (05:01)
[2020-11-19] MEDS: ceFAZolin INJECTION 1,000 MG in WATER (STERILE) FOR INJECTION 10 ML IV SCH (05:10)
[2020-11-19] MEDS: ENOXAPARIN 300 MG/3 ML (LOVENOX) MULTI-DOSE VIAL SQ SCH (05:10)
--- NOTE | 2020-11-19 05:40 | Pulmonary Progress Note ---
Subjective Time Seen by a Provider: 05:36 Subjective/Events-last exam PT appears to be doing better from pulmonary standpoint. Sepsis Event Evaluation Height, Weight, BMI Height: '" Weight: lbs. oz. kg; 54.40 BMI Method: Exam Exam Vital Signs Date Time Temp Pulse Resp B/P (MAP) Pulse Ox O2 Delivery O2 Flow Rate FiO2 11/19/20 04:34 36.0 80 16 124/70 (88) 97 Nasal Cannula 2.00 11/19/20 01:52 93 Nasal Cannula 2.00 11/19/20 01:00 90 11/18/20 23:45 36.6 88 20 131/76 (94) 95 Nasal Cannula 2.00 11/18/20 22:30 91 Nasal Cannula 2.00 11/18/20 21:00 High Flow N/C 3.00 11/18/20 19:51 37.1 96 18 138/88 (105) 96 Nasal Cannula 2.00 11/18/20 19:00 100 11/18/20 18:45 92 Nasal Cannula 2.00 11/18/20 16:04 36.4 92 16 138/83 (101) 95 Nasal Cannula 2.00 11/18/20 14:53 95 Nasal Cannula 2.00 11/18/20 13:00 98 11/18/20 12:00 35.9 98 18 144/70 (94) 95 Nasal Cannula 2.00 11/18/20 10:23 93 Nasal Cannula 2.00 11/18/20 09:00 High Flow N/C 2.00 11/18/20 08:00 35.2 92 16 120/63 (82) 95 Nasal Cannula 2.00 11/18/20 07:00 88 11/18/20 06:40 94 Nasal Cannula 2.00 I & O 11/19/20 07:00 Intake Total 2370 ml Output Total 3025 ml Balance -655 ml Height & Weight Height: '" Weight: lbs. oz. kg; 54.40 BMI Method: General Appearance: No Apparent Distress, Chronically ill, Obese HEENT: PERRL/EOMI, Pharynx Normal Neck: Full Range of Motion, Non Tender Respiratory: Lungs Clear, No Accessory Muscle Use, No Respiratory Distress Cardiovascular: Regular Rate, Rhythm, No Murmur, Normal Peripheral Pulses Capillary Refill: Less Than 3 Seconds Gastrointestinal: other (Multiple scattered ulcers under pannus bilaterally of various sizes, ranging up to 3 cm.) Extremity: Non Tender, No Calf Tenderness, Pedal Edema Neurologic/Psychiatric: Alert, Oriented x3, Normal Mood/Affect Skin: Other Results Lab Laboratory Tests 11/18/20 04:16 11/19/20 04:25 Assessment/Plan Assessment/Plan Acute respiratory failure --much improved -Now on 2 liter NC -- Titrate down to D.C -Monitor Severe sepsis -- resolving Chronic frost with UTI -Cefepime Skin wounds -Wound care consulted Type II DM MICAH GAMEZ DO Nov 19, 2020 05:40
[2020-11-19] MEDS: UMECLIDINIUM BROMIDE (INCRUSE ELLIPTA) 7'S IH SCH (07:25)
[2020-11-19] MEDS: PANTOPRAZOLE 40 MG (PROTONIX) VIAL IV SCH (08:09)
[2020-11-19] MEDS: MICONAZOLE 2% POWDER (DESENEX AF) 90 GM TOP SCH (08:10)
[2020-11-19] MEDS: ASCORBIC ACID (VIT C) 500 MG TABLET PO SCH (08:10)
[2020-11-19] MEDS: PANTOPRAZOLE 40 MG (PROTONIX) TAB PO SCH (08:10)
[2020-11-19] MEDS: SUCRALFATE 1 GM (CARAFATE) TAB PO SCH (08:10)
[2020-11-19] MEDS: GABAPENTIN 300 MG (NEURONTIN) CAP PO SCH (08:10)
[2020-11-19] MEDS ORDERED: CEPH500T PO (10:35)
--- NOTE | 2020-11-19 10:37 | Discharge Inst-Simple/Standard ---
Discharge Inst-Standard Patient Instructions/Follow Up Plan of Care/Instructions/FU: Please continue to take your medications as written. Please follow up with your primary care doctor to follow up this hospital stay. Activity as Tolerated: Yes Discharge Diet: ADA Diet Return to The Hospital For: Chest pain, shortness of breath, fever, confusion, shortness of breath, if you feel you are getting worse. ANGELO MCGINNIS MD Nov 19, 2020 10:37
[2020-11-19] MEDS ORDERED: LORA-405 PO (10:40)
--- NOTE | 2020-11-19 12:11 | Discharge Summary ---
Diagnosis/Chief Complaint Date of Admission Nov 15, 2020 at 11:50 Date of Discharge Discharge Date: Nov 19, 2020 Admission Diagnosis Severe Sepsis with acute respiratory failure Primary Care Milan Davenport MD Discharge Summary Discharge Physical Exam Allergies: Coded Allergies: ciprofloxacin (Verified Allergy, Unknown, 11/15/20) vancomycin (Verified Adverse Reaction, Unknown, 11/15/20) RED MAN SYNDROME Vitals & I&Os Vital Signs Date Time Temp Pulse Resp B/P (MAP) Pulse Ox O2 Delivery O2 Flow Rate FiO2 11/19/20 10:34 97 Nasal Cannula 3.00 11/19/20 07:00 96 11/19/20 04:34 36.0 16 124/70 (88) 11/16/20 04:00 45 General Appearance: No Apparent Distress, Obese HEENT: PERRL/EOMI, Pharynx Normal Respiratory: Lungs Clear, No Accessory Muscle Use, No Respiratory Distress Cardiovascular: Regular Rate, Rhythm, No Murmur, Normal Peripheral Pulses Gastrointestinal: Normal Bowel Sounds, Non Tender, Soft Extremity: Normal Capillary Refill, No Calf Tenderness, No Pedal Edema Neurologic/Psychiatric: Alert, Oriented x3, Normal Mood/Affect Hospital Course Patient is a 60yo female resident of [facility] with a PMH of COPD, CHF, hypothyroidism and T2DM who presented to the ED on 11/15 due to lethargy and unresponsiveness. She recently recovered from COVID-19 one month ago, and wears a baseline of 2L O2. Before arrival she was noted to have an oxygen saturation of 90% on 6L. She also complained of nausea, diarrhea, and increased thirst. She was found to have a UTI with severe sepsis and acute respiratory failure with hypoxia and hypercapnia. In the ED she was placed on BiPAP, started on vancomycin and cefepime, and given a total of 3L IV fluids. She vancomycin was subsequently held due to suspected red man syndrome. She was admitted to the ICU and started on Zyvox. She tolerated BiPAP well, and on hospital day #2 she was able to come off BiPAP and back on nasal cannula. Urine and blood cultures revealed Klebsiella, so Zyvox was discontinued and she was continued on cefepime. She was transferred down to 4th floor, and continued to improve throughout her stay. Sensitivities were reviewed, and her antibiotics were deescalated to Ancef. On day of discharge, she was only requiring her baseline of 2L O2 via nasal cannula. She had no new concerns or complaints, and she will be discharged back to [facility]. Labs (last 24 hrs) Laboratory Tests 11/18/20 15:45: Glucometer 179H 11/18/20 20:11: Glucometer 195H 11/18/20 20:26: Glucometer 216H 11/19/20 04:25: White Blood Count 3.2L, Red Blood Count 3.47L, Hemoglobin 9.1L, Hematocrit 30L, Mean Corpuscular Volume 87, Mean Corpuscular Hemoglobin 26, Mean Corpuscular Hemoglobin Concent 30L, Red Cell Distribution Width 18.0H, Platelet Count 113L, Mean Platelet Volume 10.9, Immature Granulocyte % (Auto) 0, Neutrophils (%) (Auto) 40L, Lymphocytes (%) (Auto) 47H, Monocytes (%) (Auto) 9, Eosinophils (%) (Auto) 3, Basophils (%) (Auto) 0, Neutrophils # (Auto) 1.3L, Lymphocytes # (Auto) 1.5, Monocytes # (Auto) 0.3, Eosinophils # (Auto) 0.1, Basophils # (Auto) 0.0, Immature Granulocyte # (Auto) 0.0, Sodium Level 140, Potassium Level 3.9, Chloride Level 100, Carbon Dioxide Level 31, Anion Gap 9, Blood Urea Nitrogen 18, Creatinine 0.61, Estimat Glomerular Filtration Rate > 60, BUN/Creatinine Ratio 30, Glucose Level 168H, Calcium Level 7.8L, Phosphorus Level 3.3, Magnesium Level 1.8 Microbiology 11/15/20 C. difficile GDH Antigen & Toxins - Final, Complete 11/15/20 Urine Culture - Final, Complete Klebsiella pneumoniae Proteus mirabilis 11/15/20 Blood Culture - Final, Complete Klebsiella pneumoniae Probable Coag Negative Staph Patient resulted labs reviewed. Pending Labs Laboratory Tests 11/19/20 04:25: White Blood Count 3.2, Red Blood Count 3.47, Hemoglobin 9.1, Hematocrit 30, Mean Corpuscular Volume 87, Mean Corpuscular Hemoglobin 26, Mean Corpuscular Hemoglobin Concent 30, Red Cell Distribution Width 18.0, Platelet Count 113, Mean Platelet Volume 10.9, Immature Granulocyte % (Auto) 0, Neutrophils (%) (Auto) 40, Lymphocytes (%) (Auto) 47, Monocytes (%) (Auto) 9, Eosinophils (%) (Auto) 3, Basophils (%) (Auto) 0, Neutrophils # (Auto) 1.3, Lymphocytes # (Auto) 1.5, Monocytes # (Auto) 0.3, Eosinophils # (Auto) 0.1, Basophils # (Auto) 0.0, Immature Granulocyte # (Auto) 0.0, Sodium Level 140, Potassium Level 3.9, Chloride Level 100, Carbon Dioxide Level 31, Anion Gap 9, Blood Urea Nitrogen 18, Creatinine 0.61, Estimat Glomerular Filtration Rate > 60, BUN/Creatinine Ratio 30, Glucose Level 168, Calcium Level 7.8, Phosphorus Level 3.3, Magnesium Level 1.8 Discharge Home Medications: Active Scripts Active Ativan (Lorazepam) 1 Mg Tablet 1 Mg PO BID PRN 30 Days Cephalexin 500 Mg Tablet 500 Mg PO BID Reported Spiriva (Tiotropium [place]) 1 Inh Aerp 1 Inh IH DAILY Proair Hfa (Albuterol Sulfate) 1 Puff Puff 2 Puff IH Q4H PRN Neurontin (Gabapentin) 300 Mg Capsule 300 Mg PO BID Potassium (Potassium Gluconate) 99 Mg Tablet 20 Meq PO DAILY Pantoprazole Sodium 40 Mg Tablet.dr 40 Mg PO DAILY Ondansetron HCl 4 Mg Tablet 4 Mg PO Q8H PRN Mobic (Meloxicam) 15 Mg Tablet 15 Mg PO DAILY Maxalt (Rizatriptan Benzoate) 10 Mg Tablet 10 Mg PO UD PRN MAY REPEAT EVERY 2 HOURS IF NEEDED Lantus (Insulin Glargine,Hum.rec.anlog) 100 Unit/1 Ml Vial 25 Unit SQ HS Lamictal (Lamotrigine) 100 Mg Tablet 100 Mg PO DAILY Iprat-Albut 0.5-3(2.5) mg/3 ml (Ipratropium/Albuterol Sulfate) 3 Ml Ampul.neb 3 Ml IH QID Furosemide 40 Mg Tablet 40 Mg PO DAILY Farxiga (Dapagliflozin Propanediol) 10 Mg Tablet 10 Mg PO DAILY Carafate (Sucralfate) 1 Gm Tablet 1 Gm PO TID Bydureon Pen (Exenatide Microspheres) 2 Mg/0.65 Ml Pen.injctr 2 Mg SQ WED Olanzapine 5 Mg Tablet 5 Mg PO HS Vitamin C (Ascorbate Calcium) 500 Mg Tablet 500 Mg PO BID Instructions to patient/family Please see electronic discharge instructions given to patient. CLAIRE PENDLETON,MED STUDENT Nov 19, 2020 12:11
== END 2020-11-19 12:00 | DRG 871 ==
LOC: EDUNIT# 09:27 → ER 09:29 → ICU 11:50 → 4TH 11-17 14:32
PROVIDERS: ADMIT Family Medicine; ATTEND Family Medicine
PROC: 5A09357 Assistance with Respiratory Ventilation, Less than 24 Consecutive Hours, Continuous Positive Airway Pressure (ICD-10-PCS; principal; 2020-11-15)
DX: A41.9 Sepsis, unspecified organism (principal); J96.01 Acute respiratory failure with hypoxia; J96.02 Acute respiratory failure with hypercapnia; J18.9 Pneumonia, unspecified organism; N39.0 Urinary tract infection, site not specified; T83.511A Infection and inflammatory reaction due to indwelling urethral catheter, initial encounter; J44.0 Chronic obstructive pulmonary disease with (acute) lower respiratory infection; R65.20 Severe sepsis without septic shock; Z88.1 Allergy status to other antibiotic agents; I50.9 Heart failure, unspecified; E11.9 Type 2 diabetes mellitus without complications; E03.9 Hypothyroidism, unspecified; D69.6 Thrombocytopenia, unspecified; D64.9 Anemia, unspecified; E83.42 Hypomagnesemia; K21.9 Gastro-esophageal reflux disease without esophagitis; F41.9 Anxiety disorder, unspecified; F32.9 Major depressive disorder, single episode, unspecified; E83.39 Other disorders of phosphorus metabolism
CPT/HCPCS: 36415; 36569; 71045; 76937; 80048; 80053; 81000; 82805; 82962; 83605; 83735; 83880; 84100; 84145; 85007; 85025; 85027; 85379; 85610; 85730; 87040; 87077; 87088; 87186; 87324; 87449; 94640; 94660; 94760; 96361; 96365; 96375; 99291

== ENCOUNTER → 2020-11-26 | Outpatient (CLI) | payer MEDICARE, MEDICAID ==
[~2020-11-26] MED LIST changes: +CEPH500T PO; +QUET25TA34 PO; -QUET25TA73 PO; +QUET50TA22 PO; -QUET50TA55 PO
== END ==
LOC: WOUNDCARE 09:58
PROVIDERS: ATTEND Orthopaedic Surgery Hand Surgery
DX: L98.492 Non-pressure chronic ulcer of skin of other sites with fat layer exposed (principal); L22 Diaper dermatitis; L89.153 Pressure ulcer of sacral region, stage 3; I96 Gangrene, not elsewhere classified

== ENCOUNTER 2020-12-07 10:17 | Emergency (ER) | payer MEDICARE, MEDICAID ==
[~2020-12-07] VITALS: Ht 165 cm; Wt 145.0 kg
[2020-12-07] MEDS ORDERED: ONDANSETRON 4 MG/2 ML (SDV) Z0FRAN IVP ONE (10:30)
[2020-12-07 11:39] LABS: BASOPHILS % (AUTO) 0 % (0-10); EOSINOPHILS # (AUTO) 0.2 10^3/uL (0.0-0.3); EOSINOPHILS % (AUTO) 3 % (0-10); HEMATOCRIT 36 % (35-52); HEMOGLOBIN 10.8 g/dL (11.5-16.0); LYMPHOCYTES # (AUTO) 1.7 10^3/uL (1.0-4.0); LYMPHOCYTES % (AUTO) 38 % (12-44); MEAN CORPUSCULAR HEMOGLOBIN 27 pg (25-34); MEAN CORPUSCULAR HGB CONC 30 g/dL (32-36); MEAN CORPUSCULAR VOLUME 89 fL (80-99); MEAN PLATELET VOLUME 10.8 fL (9.0-12.2); MONOCYTES # (AUTO) 0.3 10^3/uL (0.0-1.0); MONOCYTES % (AUTO) 7 % (0-12); NEUTROPHILS # (AUTO) 2.2 10^3/uL (1.8-7.8); NEUTROPHILS % (AUTO) 51 % (42-75); PLATELET COUNT 180 10^3/uL (130-400); WHITE BLOOD COUNT 4.4 10^3/uL (4.3-11.0)
[2020-12-07 11:49] LABS: ALBUMIN 3.4 GM/DL (3.2-4.5)
[2020-12-07 11:50] LABS: CHLORIDE 100 MMOL/L (98-107); POTASSIUM 3.4 MMOL/L (3.6-5.0); SODIUM 140 MMOL/L (135-145)
[2020-12-07 11:51] LABS: CALCIUM 8.6 MG/DL (8.5-10.1)
[2020-12-07 11:52] LABS: GLUCOSE 142 MG/DL (70-105); TOTAL PROTEIN 6.2 GM/DL (6.4-8.2)
[2020-12-07 11:53] LABS: CARBON DIOXIDE 34 MMOL/L (21-32)
[2020-12-07 11:54] LABS: BILIRUBIN,TOTAL 0.4 MG/DL (0.1-1.0)
[2020-12-07 11:55] LABS: ALKALINE PHOSPHATASE 80 U/L (40-136)
[2020-12-07 11:56] LABS: CREATININE SERUM 0.69 MG/DL (0.60-1.30); GFR ESTIMATED > 60
[2020-12-07 11:57] LABS: BUN/CREATININE RATIO 13
[2020-12-07 11:58] LABS: ALANINE AMINOTRANSFERASE 44 U/L (0-55); MAGNESIUM 1.5 MG/DL (1.6-2.4)
[2020-12-07 12:00] LABS: LIPASE 11 U/L (8-78)
[2020-12-07 12:08] LABS: BILIRUBIN,URINE NEGATIVE (NEGATIVE); CLARITY,URINE CLEAR; COLOR,URINE YELLOW; GLUCOSE, URINE (UA) 3+ (NEGATIVE); KETONES,URINE 1+ (NEGATIVE); LEUKOCYTE ESTERASE ,URINE 1+ (NEGATIVE); NITRITE,URINE POSITIVE (NEGATIVE); PROTEIN,URINE NEGATIVE (NEGATIVE)
[2020-12-07 12:16] LABS: BACTERIA,URINE FEW /HPF; RBC,URINE RARE /HPF; WBC,URINE 50-100 /HPF; YEAST,URINE LARGE /HPF
[2020-12-07] MEDS ORDERED: cefTRIAXone FOR IV USE 1,000 MG in WATER (STERILE) FOR INJECTION 10 ML IV ONE (12:30)
[2020-12-07] MEDS ORDERED: NS 100 ML (IVPB) BAG IV ONE (12:45)
[2020-12-07] MEDS ORDERED: IOHEXOL 350 MG/ML 100 ML (OMNIPAQUE 350) VIAL IV ONE (12:45)
[2020-12-07] MEDS ORDERED: CATHETER FLUSH 10 ML SYR IV PRN (12:45)
[2020-12-07] MEDS ORDERED: HOLD METFORMIN - RECEIVED CONTRAST 20 ML VIAL IV SCH (12:45)
--- NOTE | 2020-12-07 13:28 | Diagnostic Imaging Report ---
PROCEDURE: CT abdomen and pelvis with contrast. TECHNIQUE: Multiple contiguous axial images were obtained through the abdomen and pelvis after administration of intravenous contrast. Auto Exposure Controls were utilized during the CT exam to meet ALARA standards for radiation dose reduction. All CT scans use one or more of the following dose optimizing techniques: automated exposure control, MA and/or KvP adjustment based on patient size and exam type or iterative reconstruction. INDICATION: Right upper quadrant pain, nausea and vomiting. COMPARISON: 02/03/2019. FINDINGS: There is dependent bibasilar atelectasis. There is chronic fatty infiltration of the liver. The gallbladder surgically absent. No pathological bile duct dilatation. The pancreas unremarkable. There is a large supra and infraumbilical right paramedian ventral abdominal wall hernia comprised of omental and mesenteric fat as well as unobstructed segments of small and large bowel. No inflammatory changes within the sac this is presumed an incisional hernia from prior surgery. Urinary tracts unobstructed. The spleen and adrenals are negative. There is a simple bilateral renal cortical cyst stable from comparison. Urinary bladder catheterized. Uterus and adnexa unremarkable. No ascites, abscess, hematoma or other acute fluid collection. Extending outside the [id number], there is some nonspecific subcutaneous edema along the fat at the right flank. IMPRESSION: Chronic fatty liver, enlarging nonobstructing and noninflamed paramedian ventral abdominal wall hernia, nonspecific partially visualized subcutaneous edema along the right flank with no demonstrated fluid collection. Renal cyst without hydronephrosis. No ascites or acute fluid collection. Dictated by: Dictated on workstation # [id number]
--- NOTE | 2020-12-07 14:09 | ED Abdominal Pain ---
General Chief Complaint: Abdominal/GI Problems Stated Complaint: N/V,DIARRHEA Nursing Triage Note: TO ED PER EMS FROM [facility], [place] STAFF REPORT HAD N/V/D YESTERDAY PATIENT HAS FOLELY IN PLACE. Sepsis Screen: No Definite Risk Source of Information: Patient Exam Limitations: No Limitations History of Present Illness Date Seen by Provider: Dec 07, 2020 Time Seen by Provider: 10:18 Initial Comments This 60-year-old woman presents to the emergency room via EMS from [facility] with complaints of nausea, vomiting, diarrhea, but had right upper quadrant pain over the past 3 days. She has an indwelling Reilly catheter with cloudy urine in it. She was recently admitted to the hospital reports the catheter was replaced at that time. Record review shows admission November 15- for pneumonia. She was reportedly intubated. Allergies and Home Medications Allergies Coded Allergies: ciprofloxacin (Verified Allergy, Unknown, 11/15/20) vancomycin (Verified Adverse Reaction, Unknown, 11/15/20) RED MAN SYNDROME Home Medications Albuterol Sulfate 1 Puff Puff, 2 PUFF IH Q4H PRN for SHORTNESS OF BREATH, (Reported) Ascorbate Calcium 500 Mg Tablet, 500 MG PO BID, (Reported) Cefdinir 300 Mg Capsule, 300 MG PO BID Prescribed by: MYLENE GUERRERO on 12/07/20 1410 Cephalexin 500 Mg Tablet, 500 MG PO BID Prescribed by: ANGELO MCGINNIS on 11/19/20 1035 Dapagliflozin Propanediol 10 Mg Tablet, 10 MG PO DAILY, (Reported) Exenatide Microspheres 2 Mg/0.65 Ml Pen.injctr, 2 MG SQ WED, (Reported) Fluconazole 150 Mg Tablet, 150 MG PO UD Take every other day starting December 09. Prescribed by: MYLENE GUERRERO on 12/07/20 1410 Furosemide 40 Mg Tablet, 40 MG PO DAILY, (Reported) Gabapentin 300 Mg Capsule, 300 MG PO BID, (Reported) Insulin Glargine,Hum.rec.anlog 100 Unit/1 Ml Vial, 25 UNIT SQ HS, (Reported) Ipratropium/Albuterol Sulfate 3 Ml Ampul.neb, 3 ML IH QID, (Reported) Lamotrigine 100 Mg Tablet, 100 MG PO DAILY, (Reported) Lorazepam 1 Mg Tablet, 1 MG PO BID PRN for ANXIETY Prescribed by: ANGELO MCGINNIS on 11/19/20 1040 Meloxicam 15 Mg Tablet, 15 MG PO DAILY, (Reported) Olanzapine 5 Mg Tablet, 5 MG PO HS, (Reported) Ondansetron HCl 4 Mg Tablet, 4 MG PO Q8H PRN for NAUSEA-1ST LINE, (Reported) Pantoprazole Sodium 40 Mg Tablet.dr, 40 MG PO DAILY, (Reported) Potassium Gluconate 99 Mg Tablet, 20 MEQ PO DAILY, (Reported) Rizatriptan Benzoate 10 Mg Tablet, 10 MG PO UD PRN for HEADACHE, (Reported) MAY REPEAT EVERY 2 HOURS IF NEEDED Sucralfate 1 Gm Tablet, 1 GM PO TID, (Reported) Tiotropium [place] 1 Inh Aerp, 1 INH IH DAILY, (Reported) Valacyclovir HCl 1,000 Mg Tablet, 1,000 MG PO TID Prescribed by: MYLENE GUERRERO on 12/07/20 1410 Patient Home Medication List Home Medication List Reviewed: Yes Review of Systems Review of Systems Constitutional: no symptoms reported EENTM: No Symptoms Reported Respiratory: No Symptoms Reported Cardiovascular: No Symptoms Reported Gastrointestinal: See HPI Genitourinary: See HPI Musculoskeletal: no symptoms reported Skin: no symptoms reported Psychiatric/Neurological: No Symptoms Reported Endocrine: No Symptoms Reported Hematologic/Lymphatic: No Symptoms Reported Past Turevdh-Wtxwjs-Lbltqm Hx Past Med/Social Hx: Reviewed Nursing Past Med/Soc Hx Patient Social History Alcohol Use: Denies Use Smoking Status: Never a Smoker Recent Infectious Disease Expo: No Recent Hopitalizations: No Immunizations Up To Date Tetanus Booster (TDap): Unknown PED Vaccines UTD: Yes Date of Influenza Vaccine: Aug 15, 2020 Seasonal Allergies Seasonal Allergies: No Past Medical History Surgeries: Yes Respiratory: Yes Pneumonia Cardiac: Yes Neurological: No : No Genitourinary: Yes UTI-Chronic Gastrointestinal: Yes Gastroesophageal Reflux Musculoskeletal: No Endocrine: Yes (Morbid obesity) Hypothyroidsim, Diabetes, Non-Insulin dep HEENT: No Cancer: No Psychosocial: Yes Anxiety, Depression Physical Exam Vital Signs Vital Signs - First Documented 12/07/20 12/07/20 10:17 15:25 Temp 36.9 Pulse 101 Resp 18 B/P (MAP) 147/81 (103) Pulse Ox 94 O2 Delivery Room Air O2 Flow Rate 2.00 Capillary Refill : Less Than 3 Seconds Height/Weight/BMI Height: '" Weight: lbs. oz. kg; 53.00 BMI Method: General Appearance: WD/WN, no apparent distress, obese HEENT: normal ENT inspection Neck: normal inspection Respiratory: lungs clear, normal breath sounds, no respiratory distress Cardiovascular: regular rate, rhythm, no edema, no murmur Gastrointestinal: normal bowel sounds, soft, tenderness (Right upper quadrant tenderness), other (Healed scar on the right mid abdomen) Extremities: non-tender, swelling Neurologic/Psychiatric: copyright expert II-XII nml as tested, no motor/sensory deficits, alert, normal mood/affect, oriented x 3 Skin: normal color, warm/dry, other (Skin is sensitive to the touch in the right upper quadrant and right flank area.) Progress/Results/Core Measures Results/Orders Lab Results Laboratory Tests Test 12/07/20 09:30 12/07/20 11:58 Range/Units White Blood Count 4.4 4.3-11.0 10^3/uL Red Blood Count 4.05 3.80-5.11 10^6/uL Hemoglobin 10.8 L 11.5-16.0 g/dL Hematocrit 36 35-52 % Mean Corpuscular Volume 89 80-99 fL Mean Corpuscular Hemoglobin 27 25-34 pg Mean Corpuscular Hemoglobin Concent 30 L 32-36 g/dL Red Cell Distribution Width 16.4 H 10.0-14.5 % Platelet Count 180 130-400 10^3/uL Mean Platelet Volume 10.8 9.0-12.2 fL Immature Granulocyte % (Auto) 0 % Neutrophils (%) (Auto) 51 42-75 % Lymphocytes (%) (Auto) 38 12-44 % Monocytes (%) (Auto) 7 0-12 % Eosinophils (%) (Auto) 3 0-10 % Basophils (%) (Auto) 0 0-10 % Neutrophils # (Auto) 2.2 1.8-7.8 10^3/uL Lymphocytes # (Auto) 1.7 1.0-4.0 10^3/uL Monocytes # (Auto) 0.3 0.0-1.0 10^3/uL Eosinophils # (Auto) 0.2 0.0-0.3 10^3/uL Basophils # (Auto) 0.0 0.0-0.1 10^3/uL Immature Granulocyte # (Auto) 0.0 0.0-0.1 10^3/uL Sodium Level 140 135-145 MMOL/L Potassium Level 3.4 L 3.6-5.0 MMOL/L Chloride Level 100 98-107 MMOL/L Carbon Dioxide Level 34 H 21-32 MMOL/L Anion Gap 6 5-14 MMOL/L Blood Urea Nitrogen 9 7-18 MG/DL Creatinine 0.69 0.60-1.30 MG/DL Estimat Glomerular Filtration Rate > 60 BUN/Creatinine Ratio 13 Glucose Level 142 H 70-105 MG/DL Calcium Level 8.6 8.5-10.1 MG/DL Corrected Calcium 9.1 8.5-10.1 MG/DL Magnesium Level 1.5 L 1.6-2.4 MG/DL Total Bilirubin 0.4 0.1-1.0 MG/DL Aspartate Amino Transf (AST/SGOT) 38 H 5-34 U/L Alanine Aminotransferase (ALT/SGPT) 44 0-55 U/L Alkaline Phosphatase 80 40-136 U/L C-Reactive Protein High Sensitivity 0.49 0.00-0.50 MG/DL Total Protein 6.2 L 6.4-8.2 GM/DL Albumin 3.4 3.2-4.5 GM/DL Lipase 11 8-78 U/L Urine Color YELLOW Urine Clarity CLEAR Urine pH 5.0 5-9 Urine Specific [place] 1.025 H 1.016-1.022 Urine Protein NEGATIVE NEGATIVE Urine Glucose (UA) 3+ H NEGATIVE Urine Ketones 1+ H NEGATIVE Urine Nitrite POSITIVE H NEGATIVE Urine Bilirubin NEGATIVE NEGATIVE Urine Urobilinogen 0.2 < = 1.0 MG/DL Urine Leukocyte Esterase 1+ H NEGATIVE Urine RBC (Auto) TRACE-I NEGATIVE Urine RBC RARE /HPF Urine WBC 50-100 H /HPF Urine Crystals NONE /LPF Urine Bacteria FEW H /HPF Urine Casts NONE /LPF Urine Mucus NEGATIVE /LPF Urine Yeast LARGE H /HPF Urine Culture Indicated YES My Orders Orders - MYLENE ANTHONY MD Cbc With Automated Diff (12/07/20 10:22) Comprehensive Metabolic Panel (12/07/20 10:22) Hs C Reactive Protein (12/07/20 10:22) Lipase (12/07/20 10:22) Magnesium (12/07/20 10:22) Ua Culture If Indicated (12/07/20 10:22) Ed Iv/Invasive Line Start (12/07/20 10:22) Ondansetron Injection (Zofran Injectio (12/07/20 10:30) Venous Access Request Order (12/07/20 10:43) Urine Culture (12/07/20 11:58) Ct Abdomen/Pelvis W (12/07/20 12:19) Ceftriaxone For Iv Use (Rocephin For I (12/07/20 12:30) Iohexol Injection (Omnipaque 350 Mg/Ml 1 (12/07/20 12:45) Received Contrast (Hold Metformin- Contr (12/07/20 12:45) Sodium Chloride Flush (Catheter Flush Sy (12/07/20 12:45) Ns (Ivpb) (Sodium Chloride 0.9% Ivpb Bag (12/07/20 12:45) Reilly Cath (12/07/20 14:01) Fluconazole Tablet (Ed Only) (Diflucan T (12/07/20 14:15) Magnesium Oxide Tablet (Mag Ox Tablet) (12/07/20 14:15) Medications Given in ED Current Medications Medications Dose Ordered Sig/Jeremi Route Start Time Stop Time Status Last Admin Dose Admin Ceftriaxone Sodium 1000 mg/ Sterile Water 10 ml @ 200 mls/hr ONCE ONCE IV 12/07/20 12:30 12/07/20 12:32 DC 12/07/20 12:48 200 MLS/HR Fluconazole 150 mg ONCE ONCE PO 12/07/20 14:15 12/07/20 14:16 DC 12/07/20 15:04 150 MG Iohexol 100 ml ONCE ONCE IV 12/07/20 12:45 12/07/20 12:46 DC 12/07/20 13:04 100 ML Magnesium Oxide 400 mg ONCE ONCE PO 12/07/20 14:15 12/07/20 14:16 DC 12/07/20 15:04 400 MG Ondansetron HCl 4 mg ONCE ONCE IVP 12/07/20 10:30 12/07/20 10:31 DC 12/07/20 11:37 4 MG Sodium Chloride 10 ml NEEDED PRN IV 12/07/20 12:45 12/07/20 15:50 DC 12/07/20 13:05 10 ML Sodium Chloride 100 ml ONCE ONCE IV 12/07/20 12:45 12/07/20 12:46 DC 12/07/20 13:05 80 ML Vital Signs/I&O 12/07/20 12/07/20 10:17 15:25 Temp 36.9 Pulse 101 93 Resp 18 18 B/P (MAP) 147/81 (103) 148/76 Pulse Ox 94 95 O2 Delivery Room Air Nasal Cannula O2 Flow Rate 2.00 Blood Pressure Mean: 103 Progress Progress Note : Progress Note Labs were relatively unremarkable except for mild hypomagnesemia and urinary tract infection. Patient was treated with Rocephin and Reilly catheter was replaced. CT of the abdomen and pelvis showed inflammatory changes in the subcutaneous tissue of the right abdomen and flank. There was no obvious inflammation of the skin on exam. Patient was quite tender to the touch however. This made me suspicious for possible early shingles. I discussed the case with Dr. Roberts who recommended returning to the [facility] with empiric treatment for UTI and shingles. Diagnostic Imaging Diagonstic Imaging: CT Plain Films/CT/US/NM/MRI: abdomen, pelvis Comments CT abdomen and pelvis viewed by me and Report reviewed. See report below: NAME: VIKI CYR [facility] REC#: [id number] PT STATUS: DEP ER : 1960 PHYSICIAN: MYLENE ANTHONY MD ADMIT DATE: 12/07/20/ER Signed Date of Exam:12/07/20 CT ABDOMEN/PELVIS W PROCEDURE: CT abdomen and pelvis with contrast. TECHNIQUE: Multiple contiguous axial images were obtained through the abdomen and pelvis after administration of intravenous contrast. Auto Exposure Controls were utilized during the CT exam to meet ALARA standards for radiation dose reduction. All CT scans use one or more of the following dose optimizing techniques: automated exposure control, MA and/or KvP adjustment based on patient size and exam type or iterative reconstruction. INDICATION: Right upper quadrant pain, nausea and vomiting. COMPARISON: 02/03/2019. FINDINGS: There is dependent bibasilar atelectasis. There is chronic fatty infiltration of the liver. The gallbladder surgically absent. No pathological bile duct dilatation. The pancreas unremarkable. There is a large supra and infraumbilical right paramedian ventral abdominal wall hernia comprised of omental and mesenteric fat as well as unobstructed segments of small and large bowel. No inflammatory changes within the sac this is presumed an incisional hernia from prior surgery. Urinary tracts unobstructed. The spleen and adrenals are negative. There is a simple bilateral renal cortical cyst stable from comparison. Urinary bladder catheterized. Uterus and adnexa unremarkable. No ascites, abscess, hematoma or other acute fluid collection. Extending outside the [id number], there is some nonspecific subcutaneous edema along the fat at the right flank. IMPRESSION: Chronic fatty liver, enlarging nonobstructing and noninflamed paramedian ventral abdominal wall hernia, nonspecific partially visualized subcutaneous edema along the right flank with no demonstrated fluid collection. Renal cyst without hydronephrosis. No ascites or acute fluid collection. Dictated by: Dictated on workstation # [id number] Dict: 12/07/20 1313 Trans: 12/07/20 1659 [id number] Interpreted by: ELIU STODDARD Electronically signed by: ELIU STODDARD 12/07/20 1659 Departure Impression Primary Impression: Right upper quadrant pain Additional Impressions: Nausea and vomiting Qualified Codes: R11.2 - Nausea with vomiting, unspecified Urinary tract infection Qualified Codes: N39.0 - Urinary tract infection, site not specified Disposition: HOME, SELF-CARE Condition: Improved Departure-Patient Inst. Decision time for Depature: 14:04 Referrals: KIRSTIN HERNANDEZ MD (PCP/Family) Primary Care Physician Patient Instructions: Shingles, Urinary Tract Infection, Adult (DC) Add. Discharge Instructions: Drink plenty of clear liquids to stay well-hydrated. Complete your antibiotics as prescribed. Monitor the skin on the right flank for signs of shingles. Complete acyclovir as prescribed. Use the Zofran as previously directed for nausea and vomiting. Call with questions or concerns. Return to the emergency room with worsening condition. All discharge instructions reviewed with patient and/or family. Voiced understanding. Scripts Valacyclovir HCl (Valtrex) 1,000 Mg Tablet 1000 MG PO TID, #21 TAB Prov: MYLENE ANTHONY MD 12/07/20 Fluconazole (Diflucan) 150 Mg Tablet 150 MG PO UD, #3 TAB Take every other day starting December 09. Prov: MYLENE ANTHONY MD 12/07/20 Cefdinir (Cefdinir) 300 Mg Capsule 300 MG PO BID, #14 CAP Prov: MYLENE ANTHONY MD 12/07/20 Copy Copies To 1: MARIMAR ROBERTS MD, JOSHUA T MD Dec 07, 2020 14:09
[2020-12-07] MEDS ORDERED: VALA10004 PO (14:10)
[2020-12-07] MEDS ORDERED: FLUC150T PO (14:10)
[2020-12-07] MEDS ORDERED: CEFD300C3 PO (14:10)
[2020-12-07] MEDS ORDERED: FLUCONAZOLE 150 MG TABLET (ED ONLY) PO ONE (14:15)
[2020-12-07] MEDS ORDERED: MAGNESIUM OXIDE (MAG-OX)400 MG TAB PO ONE (14:15)
[2020-12-07 15:25] VITALS: BP 148/76
== END 2020-12-07 15:50 | disposition home or self-care (01) ==
LOC: EDUNIT# 10:17 → ER 10:18
DX: R10.11 Right upper quadrant pain (principal); R11.2 Nausea with vomiting, unspecified; N39.0 Urinary tract infection, site not specified; K21.9 Gastro-esophageal reflux disease without esophagitis; F41.9 Anxiety disorder, unspecified; E11.9 Type 2 diabetes mellitus without complications; E66.01 Morbid (severe) obesity due to excess calories; Z68.43 Body mass index [BMI] 50.0-59.9, adult; Z88.1 Allergy status to other antibiotic agents
CPT/HCPCS: 36410; 51702; 74177; 76937; 80053; 81000; 83690; 83735; 85025; 86141; 87088; C1751; 36415

== ENCOUNTER → 2020-12-10 | Outpatient (CLI) | payer MEDICARE, MEDICAID ==
[~2020-12-10] MED LIST changes: +CEFD300C3 PO; +FLUC150T PO; +VALA10004 PO
== END ==
LOC: WOUNDCARE 09:15
PROVIDERS: ATTEND Orthopaedic Surgery Hand Surgery
DX: L98.492 Non-pressure chronic ulcer of skin of other sites with fat layer exposed (principal); L22 Diaper dermatitis; L89.152 Pressure ulcer of sacral region, stage 2; I96 Gangrene, not elsewhere classified

== ENCOUNTER → 2020-12-24 | Outpatient (CLI) | payer MEDICARE, MEDICAID | LOC: WOUNDCARE 09:45 | PROVIDERS: ATTEND Orthopaedic Surgery Hand Surgery | DX: L22 Diaper dermatitis (principal); I96 Gangrene, not elsewhere classified; L89.153 Pressure ulcer of sacral region, stage 3; L30.4 Erythema intertrigo ==

== ENCOUNTER → 2021-01-14 | Outpatient (CLI) | payer MEDICARE, MEDICAID | LOC: WOUNDCARE 09:45 | PROVIDERS: ATTEND Orthopaedic Surgery Hand Surgery | DX: I96 Gangrene, not elsewhere classified (principal); L89.153 Pressure ulcer of sacral region, stage 3; L22 Diaper dermatitis; L30.4 Erythema intertrigo ==

== ENCOUNTER → 2021-01-28 | Outpatient (CLI) | payer MEDICARE, MEDICAID | LOC: WOUNDCARE 09:45 | PROVIDERS: ATTEND Orthopaedic Surgery Hand Surgery | DX: L22 Diaper dermatitis (principal); L89.153 Pressure ulcer of sacral region, stage 3; L30.4 Erythema intertrigo ==

== ENCOUNTER → 2021-02-11 | Outpatient (CLI) | payer MEDICARE, MEDICAID | LOC: WOUNDCARE 12:00 | PROVIDERS: ATTEND Orthopaedic Surgery Hand Surgery | DX: L89.153 Pressure ulcer of sacral region, stage 3 (principal); L22 Diaper dermatitis; L30.4 Erythema intertrigo ==

== ENCOUNTER → 2021-02-25 | Outpatient (CLI) | payer MEDICARE, MEDICAID | LOC: WOUNDCARE 09:45 | PROVIDERS: ATTEND Orthopaedic Surgery Hand Surgery | DX: L22 Diaper dermatitis (principal); L89.153 Pressure ulcer of sacral region, stage 3; L30.4 Erythema intertrigo ==

== ENCOUNTER → 2021-03-11 | Outpatient (CLI) | payer MEDICARE, MEDICAID | LOC: WOUNDCARE 09:30 | PROVIDERS: ATTEND Orthopaedic Surgery Hand Surgery | DX: L30.4 Erythema intertrigo (principal); L22 Diaper dermatitis; L89.153 Pressure ulcer of sacral region, stage 3 ==